=== PATIENT | female | born 1960 | race Caucasian/White ===

== ENCOUNTER → 2021-03-14 11:07 | Outpatient (BNVA) | payer MEDICAID, SELFPAY | PROVIDERS: Family Provider Internal Medicine; PCP Internal Medicine; Visit Provider Urology | DX: N30.20 Other chronic cystitis without hematuria (principal) | CPT/HCPCS: 81003; 87086 ==

== ENCOUNTER → 2021-05-17 12:56 | Outpatient (BNVA) | payer MEDICAID, SELFPAY | PROVIDERS: Family Provider Internal Medicine; PCP Internal Medicine; Visit Provider Nurse Practitioner Family | DX: N30.20 Other chronic cystitis without hematuria (principal) | CPT/HCPCS: 81003 ==

== ENCOUNTER 2021-10-25 14:29 | Outpatient (CLI) | payer MEDICAID, SELFPAY ==
--- NOTE | 2021-10-25 14:40 | CT_ITS ---
WS: [email or web address] CT LUMBAR SPINE TECHNIQUE: Noncontrast CT of the lumbar spine with coronal and sagittal reformatted images. CLINICAL INFORMATION: COMPRESSION FX OF L3 VERTEBRA COMPARISON: None. DLP: 1227.[address] scans at [facility] use at least one of these dose optimization techniques: automated e xposure control; mA and/or kV adjustment per patient size (includes targeted exams where dose is matc hed to clinical indication); or iterative reconstruction. FINDINGS: Mild lumbar curve. Recent compression of the superior endplate L3 vertebral body with mild retropulsi on posterior superior cortex. Slight effacement of ventral thecal sac. No high-grade central canal st enosis. Loss of approximately 20-30% vertebral body height. Inferior endplate is preserved. This appe ars unchanged since September 21, 2021. Persistent fracture cleft in the superior endplate suspicious for subacute compression. Some sclerosis in the superior endplate. L1-L2: Normal. L2-L3: Mild annular bulging. Mild retropulsion posterior superior cortex L3. Slight effacement of radha tral thecal sac. Mild narrowing subarticular recess bilaterally. Mild facet arthropathy. Foramen are patent. L3-L4: Minimal annular bulging. Mild facet arthropathy. Spinal canal and foramen are patent. L4-L5: Mild annular bulging with slight effacement of ventral thecal sac. Spinal canal and foramen ar e patent. Moderate facet arthropathy. L5-S1: Mild annular bulging with a tiny shallow central protrusion. Slight effacement of ventral thec al sac. Spinal canal and foramen are patent. Mild facet arthropathy. Lobulated atrophic LEFT kidney with lobulated cortical lesions largest measuring 2.2 CCM.. These are nonspecific and recommend further evaluation with ultrasound or contrast-enhanced CT. Additional part ially visualized low-attenuation partially calcified lesions RIGHT kidney with scarring. CT/CT lumbar spine wo con* [id number] IMPRESSION: 1. Compression fracture superior endplate L3 with persistent visualized fractu re cleft. This is likely subacute in chronicity. Loss of approximately 20-30% v ertebral body height anteriorly. Minimal retropulsion posterior superior cortex without significant spinal canal narrowing. 2. No other compression fractures. 3. Mild facet arthropathy L3-L5. 4. Indeterminant bilateral renal lesions. Recommend further evaluation with ul trasound or contrast-enhanced CT abdomen pelvis.
== END 2021-10-25 14:30 | disposition home or self-care (01) ==
LOC: RAD 14:30
PROVIDERS: PCP Internal Medicine; Visit Provider Physician Assistant
DX: S32.030S Wedge compression fracture of third lumbar vertebra, sequela (principal); M47.816 Spondylosis without myelopathy or radiculopathy, lumbar region; N28.9 Disorder of kidney and ureter, unspecified; X58.XXXS Exposure to other specified factors, sequela
CPT/HCPCS: 72131

== ENCOUNTER 2021-11-10 14:39 | Outpatient (CLI) | payer MEDICAID, SELFPAY ==
--- NOTE | 2021-11-10 14:45 | XR_ITS ---
WS: [email or web address] DEXA (DUAL ENERGY X-RAY ABSORPTIOMETRY) Bone mineral density was performed using a Bullhorn machine. HISTORY: POSTMENOPAUSAL COMPARISON: None available. Lumbar spine BMD (L1-L4): 1.023 g/cm2 T score: -1.3 Z score: -0.1 Total hip BMD: Left: 0.830 g/cm2. T score: -1.4 Z score: -0.5 Right: 0.802 g/cm2. T score: -1.6 Z score: -0.7 10 year probability of a major osteoporotic fracture is 19.6%. XR/XR DEXA axial skeleton* [id number] IMPRESSION: OSTEOPENIA based upon the WHO classification for females.
== END 2021-11-10 14:40 | disposition home or self-care (01) ==
PROVIDERS: PCP Internal Medicine; Visit Provider Internal Medicine
DX: Z78.0 Asymptomatic menopausal state (principal); M85.88 Other specified disorders of bone density and structure, other site
CPT/HCPCS: 77080

== ENCOUNTER → 2021-11-14 13:39 | Outpatient (BNVA) | payer MEDICAID, SELFPAY | PROVIDERS: PCP Internal Medicine; Visit Provider Orthopaedic Surgery | DX: S32.039A Unspecified fracture of third lumbar vertebra, initial encounter for closed fracture (principal); X50.0XXA Overexertion from strenuous movement or load, initial encounter | CPT/HCPCS: 72100; 81003 ==

== ENCOUNTER → 2021-12-12 14:17 | Outpatient (BNVA) | payer MEDICAID, SELFPAY | PROVIDERS: PCP Internal Medicine; Visit Provider Orthopaedic Surgery | DX: S32.039D Unspecified fracture of third lumbar vertebra, subsequent encounter for fracture with routine healing (principal); X58.XXXD Exposure to other specified factors, subsequent encounter | CPT/HCPCS: 72100 ==

== ENCOUNTER → 2022-01-09 13:42 | Outpatient (BNVA) | payer MEDICAID, SELFPAY | PROVIDERS: PCP Internal Medicine; Visit Provider Orthopaedic Surgery | DX: S32.039D Unspecified fracture of third lumbar vertebra, subsequent encounter for fracture with routine healing (principal); X58.XXXD Exposure to other specified factors, subsequent encounter | CPT/HCPCS: 72100 ==

== ENCOUNTER 2022-01-29 13:46 | Outpatient (CLI) | payer MEDICAID, SELFPAY ==
--- NOTE | 2022-01-29 13:30 | CT_ITS ---
WS: [email or web address] CT ABDOMEN AND PELVIS WITH AND WITHOUT CONTRAST HISTORY: Left Renal Mass TECHNIQUE: Unenhanced 5 mm axial imaging first performed through the abdomen. Post contrast imaging t hrough the abdomen and pelvis. Oral contrast has not been provided. Sagittal and coronal reformats a re submitted. All CT scans at [facility] use at least one of these dose optimization techniqu es: automated exposure control; mA and/or kV adjustment per patient size (includes targeted exams whe re dose is matched to clinical indication); or iterative reconstruction. CONTRAST: None DLP: 2942.06 mGy.cm COMPARISON: Prior CT 07/17/2015, ultrasound 11/20/2021 Lung bases are hyperinflated. Large hiatal hernia. Normal size heart. RIGHT kidney: No atrophy or obstruction. Mild cortical thinning upper pole. No renal mass is identifi ed. Normal size ureter. Good opacification of the RIGHT ureter. The ureter is tortuous but no stone o r uroepithelial lesions. LEFT kidney: Moderate atrophy of the LEFT kidney. Kidney measures approximately 4.7 cm in length. Cor tical scarring and nodularity. There is no obstruction. No mass identified. No cysts. There is excret ion from the kidney into the pelvis but not into the ureter. Very similar to the prior study from 201 6. Liver, pancreas, gallbladder, adrenal glands and spleen are negative. No adenopathy or ascites. No GI tract obstruction. Mild anterior wedging of L3. CT/CT abdomen pelvis wo/w [id number] IMPRESSION: 1. No solid renal mass or cyst. 2. Marked atrophy LEFT kidney but there is still enhancement and excretion. 3. No uroepithelial lesions identified.
[2022-01-29] MEDS: iohexol 350 mg/mL 100 mL Btl IV (14:11)
[2022-01-29 14:43] LABS: Blood Urea Nitrogen 13 mg/dL (8-23); Glomerular Filtration Rate 50.5 mL/min (90-130)
== END 2022-01-29 13:47 | disposition home or self-care (01) ==
LOC: RAD 13:47
PROVIDERS: PCP Internal Medicine; Visit Provider Urology
DX: N28.89 Other specified disorders of kidney and ureter (principal); G31.9 Degenerative disease of nervous system, unspecified; N30.20 Other chronic cystitis without hematuria
CPT/HCPCS: 74178; 81003; 82565; 84520; Q9967

== ENCOUNTER 2022-08-07 14:37 | Outpatient (CLI) | payer MEDICAID, SELFPAY | END 2022-08-07 14:38 | disposition home or self-care (01) | PROVIDERS: PCP Family Medicine; Visit Provider Family Medicine | DX: S32.038A Other fracture of third lumbar vertebra, initial encounter for closed fracture (principal); X58.XXXA Exposure to other specified factors, initial encounter; M47.816 Spondylosis without myelopathy or radiculopathy, lumbar region; M41.9 Scoliosis, unspecified | CPT/HCPCS: 72100 ==

== ENCOUNTER → 2022-10-04 15:39 | Outpatient (BNVA) | payer MEDICAID, SELFPAY | PROVIDERS: PCP Family Medicine; Visit Provider Family Medicine | DX: N95.2 Postmenopausal atrophic vaginitis (principal); Z01.419 Encounter for gynecological examination (general) (routine) without abnormal findings | CPT/HCPCS: 87624 ==

== ENCOUNTER 2022-10-18 15:19 | Outpatient (CLI) | payer MEDICAID, SELFPAY ==
--- NOTE | 2022-10-18 15:33 | MM_ITS ---
WS: [email or web address] SCREENING DIGITAL BREAST TOMOSYNTHESIS MAMMOGRAM WITH CAD HISTORY: screening mammogram COMPARISON: 05/23/2018, 04/25/2018 Bilateral CC and MLO with tomosynthesis and synthetic mammography submitted. Computer aided detection analyzed. Breast composition: There are scattered areas of fibroglandular density. Focal asymmetry is partially obscured in the central left breast near 3:00. Additional bilateral calcifications. IMPRESSION: MM/[place] [id number] BI-RADS: 0-Incomplete: Need additional imaging evaluation FOLLOW UP: Need Additional Imaging Left breast: Spot compression views (CC and MLO). True ML. Ultrasound to follow if abnormality persists.
== END 2022-10-18 15:20 | disposition home or self-care (01) ==
LOC: RAD 15:20
PROVIDERS: PCP Family Medicine; Visit Provider Family Medicine
DX: Z12.31 Encounter for screening mammogram for malignant neoplasm of breast (principal)
CPT/HCPCS: 77063; 77067

== ENCOUNTER 2022-12-03 12:52 | Outpatient (CLI) | payer MEDICAID, SELFPAY ==
--- NOTE | 2022-12-03 12:57 | MM_ITS ---
WS: [email or web address] ADDITIONAL VIEWS LEFT MAMMOGRAM with tomosynthesis. LEFT BREAST ULTRASOUND HISTORY: abnormal screening mammogram COMPARISON: 10/18/2022 and 04/25/2018 LEFT MAMMOGRAM: Spot compression views and true ML with tomosynthesis and sympathetic mammography. Ill-defined nodule which is nearly isodense to the adjacent breast persist measuring 12 mm just centr al to the nipple. This may be normal fibroglandular tissue but further evaluation by ultrasound is re commended. No distortion. LEFT BREAST ULTRASOUND 2-D and color Doppler imaging submitted. Ultrasound LEFT breast in the area of concern demonstrates a cyst measuring 1.2 x 0.5 x 0.9 cm. This does correspond in size and location to the mammographic abnormality. IMPRESSION: MM/[place] [id number] BI-RADS: 2-Benign FOLLOW UP: 1 Year Follow-up LEFT breast mass corresponds to a simple cyst by ultrasound.
== END 2022-12-03 12:53 | disposition home or self-care (01) ==
PROVIDERS: PCP Family Medicine; Visit Provider Family Medicine
DX: R92.8 Other abnormal and inconclusive findings on diagnostic imaging of breast (principal); N60.02 Solitary cyst of left breast
CPT/HCPCS: 76642; 77061; G0279

== ENCOUNTER → 2022-12-10 09:14 | Outpatient (BNVA) | payer MEDICAID, SELFPAY | PROVIDERS: PCP Family Medicine; Visit Provider Family Medicine | DX: Z13.6 Encounter for screening for cardiovascular disorders (principal) | CPT/HCPCS: 80053; 80061; 84443; 85025 ==

== ENCOUNTER 2023-07-18 15:04 | Outpatient (CLI) | payer MEDICAID, SELFPAY ==
--- NOTE | 2023-07-18 15:19 | XR_ITS ---
WS: [email or web address] Thoracic spine, 3 views, 07/18/2023 Clinical Data: chronic back pain Comparison: None. Findings: No compression fractures are seen. The disc heights are normal. There is minimal osteoarthritic change of the thoracic vertebral bodies. The paravertebral regions ar e normal. There is a slight dextroscoliosis of the lower thoracic spine. XR/XR thoracic spine 2V [id number] Impression: Mild osteoarthritis and minimal dextroscoliosis of the thoracic spine.
--- NOTE | 2023-07-18 15:19 | XR_ITS ---
WS: [email or web address] Lumbar spine, 3 views, 07/18/2023 Clinical Data: chronic low back pain Comparison: Lumbar spine, 08/07/2022 Findings: The L3 compression fracture with loss of 50% of the anterior and central vertebral body height remain s the same. There are no other compression fractures. There is disc narrowing at L1-L2 and L2-L3. The transverse processes and SI joints are normal. There is a slight dextroscoliosis of the upper lumbar spine. XR/XR lumbar spine 2-3V* [id number] Impression: 1. No change in L3 compression fracture. 2. Degenerative disc narrowing at L1-L2 and L2-L3 unchanged. 3. Slight dextroscoliosis of the upper lumbar spine.
== END 2023-07-18 15:05 | disposition home or self-care (01) ==
LOC: RAD 15:13
PROVIDERS: PCP Family Medicine; Visit Provider Family Medicine
DX: M48.56XD Collapsed vertebra, not elsewhere classified, lumbar region, subsequent encounter for fracture with routine healing (principal); M48.061 Spinal stenosis, lumbar region without neurogenic claudication; M47.894 Other spondylosis, thoracic region
CPT/HCPCS: 72070; 72100

== ENCOUNTER 2023-08-07 11:54 | Outpatient (CLI) | payer OTHER, SELFPAY ==
--- NOTE | 2023-08-07 12:02 | XR_ITS ---
WS: [email or web address] Exam: XR lumbar spine 2-3V* [id number] Date/Time of Exam: 08/07/2023 12:18 PM Reason For Exam: BACK PAIN Comparison 07/18/2023. Old compression fracture at the upper plate of L3 again noted. No change. Degenerative narrowing of t he L2-3 disc. Posterior elements are intact. Increased lumbar lordosis. Mild levoscoliosis. XR/XR lumbar spine 2-3V* [id number] IMPRESSION: 1. Old compression fracture of the L3 without significant posterior displacemen t. 2. Degenerative change of the L2-3 disc. 3. Minimal degenerative changes and mild scoliosis.
== END 2023-08-07 11:55 | disposition home or self-care (01) ==
LOC: RAD 11:57
PROVIDERS: PCP Family Medicine; Visit Provider Dermatology
DX: M47.816 Spondylosis without myelopathy or radiculopathy, lumbar region (principal); M48.56XA Collapsed vertebra, not elsewhere classified, lumbar region, initial encounter for fracture; M41.9 Scoliosis, unspecified
CPT/HCPCS: 72100

== ENCOUNTER → 2024-02-17 10:37 | Outpatient (BNVA) | payer MEDICAID, SELFPAY | PROVIDERS: PCP Family Medicine; Visit Provider Family Medicine | DX: F10.10 Alcohol abuse, uncomplicated (principal) | CPT/HCPCS: 80053; 80061 ==

== ENCOUNTER 2024-02-25 15:12 | Outpatient (CLI) | payer MEDICAID, SELFPAY ==
--- NOTE | 2024-02-25 15:14 | XR_ITS ---
WS: [email or web address] SCREENING DEXA SCAN [employer] CLINICAL INFORMATION: breast cyst COMPARISON: 2021 FINDINGS: The L1-L4 bone mineral density measures 1.07. This corresponds to a T score score of -1.0 and Z score of 0.0. Left femoral neck bone mineral density measures 0.818 g/cm2. This corresponds to a T score of -1.5 an d Z score of -0.7. Right femoral neck bone mineral density measures 0.796 g/cm2. This corresponds to a T score -1.7of an d Z score of -0.9. Mean femoral neck bone mineral density measures 0.807 g/cm2. This corresponds to a T score of -1.6 an d Z score of -0.8. XR/XR DEXA axial skeleton* [id number] IMPRESSION: Osteopenia lumbar spine. Osteopenia femoral necks. Patient's FRAX calculated 10 year probability for major osteoporotic fracture i s 19.2% and osteoporotic hip fracture is 3.2%. Bone marrow density lumbar spine increased 4.0% Bone mineral density femoral necks decreased -1.1%
== END 2024-02-25 15:13 | disposition home or self-care (01) ==
LOC: RAD 15:13
PROVIDERS: PCP Family Medicine; Visit Provider Family Medicine
DX: Z13.820 Encounter for screening for osteoporosis (principal); M85.80 Other specified disorders of bone density and structure, unspecified site; N60.02 Solitary cyst of left breast
CPT/HCPCS: 77080

== ENCOUNTER 2024-04-07 10:49 | Outpatient (CLI) | payer MEDICAID, SELFPAY ==
--- NOTE | 2024-04-07 10:54 | MM_ITS ---
WS: [email or web address] BILATERAL 3D TOMOSYNTHESIS DIGITAL SCREENING MAMMOGRAPHY WITH CAD CLINICAL INFORMATION: ANNUAL SCREEN HISTORY: Screening mammogram. No current complaints. COMPARISON: 2022 TECHNIQUE: Bilateral CC and MLO views. FINDINGS: The breasts are composed of heterogeneous fibroglandular density tissue, which can limit the detectio n of small underlying mass lesions. No suspicious mass, asymmetry, calcifications, or architectural d istortion. No evidence of malignancy. Incidental punctate and lucent centered calcifications. Vascula r calcification. MM/MM [facility] tomosynthesis [id number] IMPRESSION: DENSITY: The breasts are heterogeneously dense, which may obscure small masses. BI-RADS: 2 - Benign FOLLOW UP: 1 Year Follow-up Recommend return to annual screening mammography.
== END 2024-04-07 10:50 | disposition home or self-care (01) ==
LOC: RAD 10:51
PROVIDERS: PCP Family Medicine; Visit Provider Family Medicine
DX: Z12.31 Encounter for screening mammogram for malignant neoplasm of breast (principal); R92.333 Mammographic heterogeneous density, bilateral breasts; R92.1 Mammographic calcification found on diagnostic imaging of breast
CPT/HCPCS: 77063; 77067

== ENCOUNTER 2024-05-30 17:30 | Inpatient (IN) | payer MEDICAID, SELFPAY ==
[2024-05-30] VITALS (17 sets, daily range): BP systolic 102–166; BP diastolic 60–84; PULSE 100–114; RESP 16–26; TEMP 36.6–37.3; O2SAT 92–100; BMI 25.8
--- NOTE | 2024-05-30 17:36 | ECG_ITS ---
COGEON [place] Date: 2024-05-30 Pat Name: Gilda Gabriel Department: Room: Gender: Female Resident Care Aid: : 1960 Requested By: Jm Murguia Order Number: [id number] Celina MD: Kwasi Wang M.D. Measurements Intervals [place] Rate: 112 P: 80 LA: 145 QRS: 66 QRSD: 81 T: 70 QT: 311 QTc: 425 Interpretive Statements SINUS TACHYCARDIA POSSIBLE RIGHT VENTRICULAR CONDUCTION DELAY [RSR (QR) IN V1/V2] MINIMAL ST DEPRESSION [0.025+ mV ST DEPRESSION] ABNORMAL RHYTHM ECG No previous ECG available for comparison Electronically Signed On 05-31-2024 22:42:53 CDT by Kwasi Wang M.D. [email or web address]
--- NOTE | 2024-05-30 17:43 | XRR_ITS ---
PROCEDURE INFORMATION: Exam: XR Chest Exam date and time: 05/30/2024 6:05 PM Age: 63 years old Clinical indication: Shortness of breath; SOB TECHNIQUE: Imaging protocol: Radiologic exam of the chest. Views: 1 view. COMPARISON: CR XR thoracic spine 2V [id number] 07/18/2023 3:25 PM FINDINGS: Lungs: No focal consolidation. Pleural spaces: Unremarkable. No pleural effusion. No pneumothorax. Heart/Mediastinum: Large hiatal hernia. Bones/joints: Unremarkable. XR/XR chest 1V portable [id number] IMPRESSION: 1. No focal consolidation. 2. Large hiatal hernia.
[2024-05-30] MEDS: methylPREDNISolone sod succ 125 mg/2 mL INJ IV (17:58)
[2024-05-30 18:05] LABS: Basophils # 0.1 10^3/uL (0.0-0.1); Basophils % 0.8 %; Eosinophils # 0.2 10^3/uL (0.0-0.8); Eosinophils % 2.7 %; Lymphocytes # 1.3 10^3/uL (0.8-4.8); Lymphocytes % 17.8 %; Mean Corpuscular HGB Conc 28.8 g/dL (30-55); Mean Corpuscular Hemoglobin 21.2 pg (27-33); Mean Corpuscular Volume 73.7 fl (85-98); Mean Platelet Volume 9.8 fL (7.4-10.4); Monocytes # 0.9 10^3/uL (0.2-0.9); Monocytes % 11.7 %; Neutrophils # 4.93 10^3/uL (1.8-7.7); Neutrophils % 66.5 %; Nucleated Red Blood Cells % 0.4 %; Platelet Count 429 10^3/cmm (157-399); Red Blood Count 2.17 10^6/uL (3.85-5.65); Red Cell Distribution Width 17.2 % (12.1-15.1); White Blood Count 7.42 10^3/uL (3.29-11.43)
[2024-05-30 18:09] LABS: D Dimer 0.28 ug/mLFEU (0-0.59)
[2024-05-30 18:12] LABS: Lactic Sepsis W/Reflex 3.6 mmol/L (0.5-2.2)
[2024-05-30] MEDS: ipratropium-albuterol 3 mL Neb INHALATION (18:12)
[2024-05-30 18:22] LABS: Alanine Aminotransferase 16 U/L (0-33); Albumin Level 3.9 g/dL (3.5-5.2); Alkaline Phosphatase 79 U/L (35-105); Anion Gap 16.4 (5-19); Aspartate Amino Transferase 21 U/L (0-32); Blood Urea Nitrogen 19 mg/dL (8-23); Calcium 8.8 mg/dL (8.5-10.5); Carbon Dioxide 21 mmol/L (22-29); Chloride 100 mmol/L (98-107); Globulin 2.3 g/dL (1.3-4.6); Glomerular Filtration Rate 50.2 mL/min (90-130); Glucose 99 mg/dL (65-115); Osmolality Calculated 278 mOsm/kg (285-295); Potassium 4.4 mmol/L (3.5-5.1); Sodium 133 mmol/L (136-145); Total Bilirubin 0.3 mg/dL (0.15-1.2); Total Protein 6.2 g/dL (6.6-8.7)
[2024-05-30 18:23] LABS: NT Pro B Type Natriuretic Pept 368 pg/mL (0-125)
--- NOTE | 2024-05-30 18:26 | W.ED.SOB ---
HPI - SOB/Dyspnea General: Chief Complaint: Shortness of Breath/Dyspnea Stated Complaint: sob Time Seen by Provider: 05/30/24 17:43 History of Present Illness: HPI Narrative: 63-year-old female says that she was ill with a cough 3 to 4 weeks ago. She was short of breath at that point. She seemed to recover to some degree, but since that time she has been very short of breath with activity. 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 Her daughter noted today that her heart rate was elevated, and that her oxygen level is a bit low. She denies ongoing cough. She denies ongoing fever. She states that she may be wheezing at times. Related Data Home Medications ?Medication ?Instructions ?Recorded ?Confirmed aripiprazole 5 mg tablet 2.5 mg PO .q am 05/30/24 05/30/24 omeprazole 40 mg capsule,delayed 40 mg PO .qnightly PRN Acid Reflux 05/30/24 05/30/24 release Previous Rx's ?Medication ?Instructions ?Recorded albuterol sulfate 90 mcg/actuation 2 puff inhalation Q6H #8.5 grams 04/26/23 aerosol inhaler amitriptyline 100 mg tablet 100 mg PO DAILY #90 tabs 02/17/24 clonazepam 0.5 mg tablet 0.5 mg PO BID PRN anxiety #45 tabs 02/17/24 venlafaxine 150 mg 150 mg PO DAILY #30 caps 05/08/24 capsule,extended release 24 hr Allergies Allergy/AdvReac Type Severity Reaction Status Date / Time No Known Allergies Allergy Verified 05/30/24 20:46 [facility] ED PFS: Medical History Alcohol use disorder, mild, abuse Screening mammogram for breast cancer Osteopenia Moderate major depression GERD (gastroesophageal reflux disease) History of compression fracture of spine L3 Chronic cystitis Surgical History History of ankle surgery Hx of cervical biopsy History of cataract surgery Family History Mother , AT AGE 48 Non Hodgkin's lymphoma Father No problems noted. Social History Smoking and tobacco/nicotine status: never used tobacco/nicotine Alcohol intake: current Alcohol intake frequency: few times a week Substance/Drug Use: never Marital status: Current occupational status: unemployed Physical Exam Const: COMMON NORMALS: no acute distress GENERAL APPEARANCE: cooperative; not ill appearing and not frail appearing HENMT: COMMON NORMALS: normocephalic, atraumatic and Normal external nose present HEAD & SCALP: normocephalic and atraumatic FACE & SINUS: normal facial exam and face symmetric NOSE: Normal external nose present Eye: COMMON NORMALS: Equal, round and reactive pupils present and EOMs intact bilaterally PUPIL: Yes Equal, round and reactive pupils present Neck/C-Spine: GENERAL: Yes trachea midline Chest: CHEST: Yes Symmetrical chest wall rise Resp: COMMON NORMALS: normal respiratory effort, No retractions, No use of accessory muscles and clear to auscultation bilaterally AUSCULTATION: clear to auscultation bilaterally Cardio: COMMON NORMALS: regular rhythm RATE: tachycardic RHYTHM: regular rhythm GI: COMMON NORMALS: Normal to inspection, nondistended, normoactive bowel sounds present Extremity: COMMON NORMALS: no pedal edema Neuro: THOR COMA SCALE: document GCS findings [place] coma scale eye opening: Spontaneous [place] coma scale verbal response: Orientated [place] coma scale motor response: Obey commands Thor coma scale total score: 15 SENSORY EXAM: Yes extremities (intact) Psych: COMMON NORMALS: speech normal SPEECH: Yes normal speech Skin: COMMON NORMALS: no rashes or lesions noted GENERAL SKIN EXAM: no rashes or lesions noted Course Vital Signs: Vital signs: Vital Signs Temperature 98.2 F 05/31/24 00:52 Pulse Rate 101 H 05/31/24 00:52 Respiratory Rate 16 05/31/24 00:52 Blood Pressure 119/70 05/31/24 00:52 Pulse Oximetry 93 05/31/24 00:52 Oxygen Delivery Me thod Room Air 05/30/24 23:44 MDM - SOB/Dyspnea Medical Decision Making Patient is mildly tachycardic. She is normotensive. Saturations remain essentially normal here with normal respirations. Chest x-ray is not impressive. She is given a breathing treatment and Solu-Medrol. On return of her labs, her hemoglobin is 4.6 with a hematocrit of 16. Anemia appears microcytic. Creatinine is 1.1. Other laboratory including D-dimer is not remarkable. Lab Data 05/30/24 17:46 05/30/24 17:46 Labs/Radiology: Radiology Impressions Chest X-Ray 05/30/24 17:43 IMPRESSION: 1. No focal consolidation. 2. Large hiatal hernia. Laboratory Results WBC 7.42 10^3/uL (3.29-11.43) 05/30/24 17:46 RBC 2.17 10^6/uL (3.85-5.65) L 05/30/24 17:46 Hgb 4.60 g/dL (11.27-16.99) L* 05/30/24 17:46 Hct 16.0 % (36-47) L* 05/30/24 17:46 MCV 73.7 fl (85-98) L 05/30/24 17:46 MCH 21.2 pg (27-33) L 05/30/24 17:46 MCHC 28.8 g/dL (30-55) L 05/30/24 17:46 RDW 17.2 % (12.1-15.1) H 05/30/24 17:46 Plt Count 429 10^3/cmm (157-399) H 05/30/24 17:46 MPV 9.8 fL (7.4-10.4) 05/30/24 17:46 Neut % (Auto) 66.5 % 05/30/24 17:46 Lymph % (Auto) 17.8 % 05/30/24 17:46 [place] % (Auto) 11.7 % 05/30/24 17:46 Eos % (Auto) 2.7 % 05/30/24 17:46 Baso % (Auto) 0.8 % 05/30/24 17:46 Neut # (Auto) 4.93 10^3/uL (1.8-7.7) 05/30/24 17:46 Lymph # (Auto) 1.3 10^3/uL (0.8-4.8) 05/30/24 17:46 [place] # (Auto) 0.9 10^3/uL (0.2-0.9) 05/30/24 17:46 Eos # (Auto) 0.2 10^3/uL (0.0-0.8) 05/30/24 17:46 Baso # (Auto) 0.1 10^3/uL (0.0-0.1) 05/30/24 17:46 Nucleated RBC % (auto) 0.4 % 05/30/24 17:46 Nucleated RBCs # 0.0 /100WBC 05/30/24 17:46 D-Dimer 0.28 ug/mLFEU (0-0.59) 05/30/24 17:46 Sodium 133 mmol/L (136-145) L 05/30/24 17:46 Potassium 4.4 mmol/L (3.5-5.1) 05/30/24 17:46 Chloride 100 mmol/L (98-107) 05/30/24 17:46 Carbon Dioxide 21 mmol/L (22-29) L 05/30/24 17:46 Anion Gap 16.4 (5-19) 05/30/24 17:46 BUN 19 mg/dL (8-23) 05/30/24 17:46 Creatinine 1.1 mg/dL (0.5-0.9) H 05/30/24 17:46 GFR Calculation 50.2 mL/min (90-130) L 05/30/24 17:46 Glucose 99 mg/dL (65-115) 05/30/24 17:46 Calculated Osmolality 278 mOsm/kg (285-295) L 05/30/24 17:46 Lactic Acid 3.6 mmol/L (0.5-2.2) H 05/30/24 17:46 Calcium 8.8 mg/dL (8.5-10.5) 05/30/24 17:46 Iron 14 ug/dL (37-145) L 05/30/24 17:46 TIBC 546 mcg/dl 05/30/24 17:46 % Saturation 2.5 % (20-50) L 05/30/24 17:46 Unsat Iron Binding 532 ug/dL (112-347) H 05/30/24 17:46 Ferritin 9 ng/mL (15-150) L 05/30/24 17:46 Total Bilirubin 0.3 mg/dL (0.15-1.2) 05/30/24 17:46 AST 21 U/L (0-32) 05/30/24 17:46 ALT 16 U/L (0-33) 05/30/24 17:46 Alkaline Phosphatase 79 U/L (35-105) 05/30/24 17:46 NT-Pro-B Natriuret Pep 368 pg/mL (0-125) H 05/30/24 17:46 Total Protein 6.2 g/dL (6.6-8.7) L 05/30/24 17:46 Albumin 3.9 g/dL (3.5-5.2) 05/30/24 17:46 Globulin 2.3 g/dL (1.3-4.6) 05/30/24 17:46 Vitamin B12 832 pg/mL (232-1245) 05/30/24 17:46 Blood Type O Positive 05/30/24 18:27 Rho(D) Type Rh positive 05/30/24 18:27 Antibody Screen Negative 05/30/24 18:27 Crossmatch See Detail 05/30/24 18:27 All radiology interpretation(s) finalized by discharge Discharge Plan Discharge Patient Disposition: Admitted As Inpatient Admit Provider: Mannie Smith Clinical Impression: Severe anemia, Microcytic anemia Clinical Impression: (Ruled Out): Anxiety Condition: Fair Coding Level of Care Code ED Assistant Manager Pt for Jared Edgar
[2024-05-30] MEDS: acetaminophen 325 mg Tablet 650 MG PO (18:38)
[2024-05-30] MEDS: diphenhydrAMINE 50 mg/mL SDV 1mL 12.5 MG IVP (18:38)
--- NOTE | 2024-05-30 18:38 | PC.NURSE ---
blood consent form signed and in chart
[2024-05-30 18:53] LABS: Reflex Lactate Order REFLEX LACTIC ORDERD
[2024-05-30] MEDS: sodium chloride 0.9% 100 mL Bag 50 ML IV (21:04)
--- NOTE | 2024-05-30 21:46 | PM.HP ---
Providers/Chief Complaint Admitting Physician: Mannie Smith MD Primary Care Provider: Pankaj Jose MD Chief Complaint: sob History of Present Illness Gilda Gabriel is a 63 year old female with history of alcoholic abuse, chronic back pain takes ibuprofen/diclofen, started noticing dark-colored stools for last 2 weeks presenting with generalized weakness and fatigue. Patient stating that at age 50 years she had colonoscopy done which was unremarkable. She has no history of gastric ulcers. On daily basis she takes NSAIDs for her back pain. She drinks wine these days before going to bed stating that she used to drink hard liquor and now switched to wine to help her sleep. 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 Not complaining of chest pain, fever, syncopal event. Patient has chronic back pain, osteopenia, anxiety insomnia GERD, alcohol use disorder Workup in the ER revealed microcytic severe anemia hemoglobin 4.6 requested unit PRBC, general surgery consulted Patient is hemodynamically stable with tachycardia Review of Systems Const: Reports: chills, body aches, fatigue and malaise; Denies: fever(s) Eyes: Denies: change in vision ENMT: Denies: throat pain Card: Denies: chest pain Resp: Denies: dyspnea GI: Denies: abdominal pain Musc: Reports: back pain Medications/Allergies Home Medications ?Medication ?Instructions ?Recorded ?Confirmed ?Last Taken ?Type albuterol sulfate 90 mcg/actuation 2 puff inhalation Q6H #8.5 grams 04/26/23 05/30/24 Unknown Rx aerosol inhaler amitriptyline 100 mg tablet 100 mg PO DAILY #90 tabs 02/17/24 05/30/24 Unknown Rx clonazepam 0.5 mg tablet 0.5 mg PO BID PRN anxiety #45 tabs 02/17/24 05/30/24 Unknown Rx venlafaxine 150 mg 150 mg PO DAILY #30 caps 05/08/24 05/30/24 Unknown Rx capsule,extended release 24 hr aripiprazole 5 mg tablet 2.5 mg PO .q am 05/30/24 05/30/24 Unknown History omeprazole 40 mg capsule,delayed 40 mg PO .qnightly PRN Acid Reflux 05/30/24 05/30/24 Unknown History release Allergies Allergy/AdvReac Type Severity Reaction Status Date / Time No Known Allergies Allergy Verified 05/30/24 20:46 PFSH Acute PFSH: Medical History Alcohol use disorder, mild, abuse Screening mammogram for breast cancer Osteopenia Moderate major depression GERD (gastroesophageal reflux disease) History of compression fracture of spine L3 Chronic cystitis Surgical History History of ankle surgery Hx of cervical biopsy History of cataract surgery Family History Mother , AT AGE 48 Non Hodgkin's lymphoma Father No problems noted. Social History Smoking and tobacco/nicotine status: never used tobacco/nicotine Alcohol intake: current Alcohol intake frequency: few times a week Substance/Drug Use: never Marital status: Current occupational status: unemployed Vitals/I&O/Wt Last Vital Signs Temp 98.3 F 05/30/24 21:04 Pulse 104 H 05/30/24 21:04 Resp 24 H 05/30/24 21:04 BP 166/84 05/30/24 21:04 Pulse Ox 92 05/30/24 21:04 O2 Del Method Room Air 05/30/24 20:35 05/30/24 05/30/24 05/30/24 06:59 14:59 22:59 Intake Total 0 / 0 Balance 0 / 0 Weight last 48 hrs Weight 79.435 kg Weight 72.575 kg Physical Exam Narrative: Awake and alert S1, S2 GCS 15 Hemodynamically stable Tachycardia sinus heart rate around 103 Blood pressure 128/74 mg per Coarse tremors noted at rest GCS 15 AOx4 Pleasant and cooperative No audible stridor or wheezing Data 05/30/24 17:46 05/30/24 17:46 A&P Assessment and plan (1) Anxiety and depression: (2) Alcohol use disorder, mild, abuse: (3) Osteopenia: (4) GERD (gastroesophageal reflux disease): Qualifiers: Esophagitis presence: without esophagitis Qualified Code(s): K21.9 - Gastro-esophageal reflux disease without esophagitis (5) History of compression fracture of spine: (6) Insomnia: Qualifiers: Insomnia type: psychophysiologic Qualified Code(s): F51.04 - Psychophysiologic insomnia (7) Severe anemia: (8) Microcytic anemia: (9) GAVINO (acute kidney injury): Plan Severe microcytic anemia Melanotic stools Patient takes NSAIDs for her back pain Drinks alcohol as well Start CIWA protocol Protonix IV twice daily regimen N.p.o. General Surgery consulted for EGD Currently patient is hemodynamically stable Requested 2 unit PRBC Not endorsing taking antiplatelets or anticoagulating agent For anxiety continue clonazepam Mild GAVINO: Anticipate improvement with blood transfusion and fluid hydration N.p.o. Full code DVT prophylaxis: Anticoagulation contraindicated: Use SCDs for now PDMP PDMP Reviewed: Not Reviewed Attestations Medical Necessity Statement*: Anticipating discharge within 24 to 48 hours will need EGD evaluation for melanotic stools, patient has severe anemia Coding Level of Care Code Acute Code for Chg Fwd Diagnoses Anxiety and depression F41.9; F32.A Alcohol use disorder, mild, abuse F10.10 Osteopenia M85.80 Gastroesophageal reflux disease without esophagitis K21.9 Esophagitis presence: without esophagitis History of compression fracture of spine Z87.81 Psychophysiological insomnia F51.04 Insomnia type: psychophysiologic Severe anemia D64.9 Microcytic anemia D50.9 GAVINO (acute kidney injury) N17.9
[2024-05-30 22:15] LABS: Ferritin 9 ng/mL (15-150); Iron 14 ug/dL (37-145); Percent Saturation 2.5 % (20-50); Total Iron Binding Capacity 546 mcg/dl; Unsaturated Iron Binding 532 ug/dL (112-347)
[2024-05-30 22:31] LABS: Vitamin B12 832 pg/mL (232-1245)
[2024-05-30 22:54] LABS: Lactic Acid level (Lactate) 1.8 mmol/L (0.5-2.2)
[2024-05-30] MEDS: thiamine 100 mg/mL 2mL SDV IM (23:04)
[2024-05-31] VITALS (27 sets, daily range): BP systolic 99–138; BP diastolic 58–78; PULSE 82–101; RESP 15–18; TEMP 36.4–37.1; O2SAT 92–100
[2024-05-31] MEDS: sodium chloride 0.9% 100 mL Bag 50 ML IV (02:07)
[2024-05-31 04:58] LABS: Basophils % 0.2 %; Hematocrit 26.1 % (36-47); Lymphocytes # 0.6 10^3/uL (0.8-4.8); Lymphocytes % 9.5 %; Mean Corpuscular HGB Conc 30.3 g/dL (30-55); Mean Corpuscular Hemoglobin 23.5 pg (27-33); Mean Corpuscular Volume 77.7 fl (85-98); Mean Platelet Volume 9.9 fL (7.4-10.4); Monocytes # 0.1 10^3/uL (0.2-0.9); Monocytes % 1.8 %; Neutrophils # 5.22 10^3/uL (1.8-7.7); Neutrophils % 87.5 %; Nucleated Red Blood Cells % 0.7 %; Platelet Count 322 10^3/cmm (157-399); Red Blood Count 3.36 10^6/uL (3.85-5.65); Red Cell Distribution Width 17.5 % (12.1-15.1); White Blood Count 5.97 10^3/uL (3.29-11.43)
[2024-05-31 05:24] LABS: Anion Gap 17.4 (5-19); Blood Urea Nitrogen 18 mg/dL (8-23); Calcium 8.8 mg/dL (8.5-10.5); Carbon Dioxide 21 mmol/L (22-29); Chloride 104 mmol/L (98-107); Glomerular Filtration Rate 63.2 mL/min (90-130); Glucose 140 mg/dL (65-115); Magnesium 2.2 mg/dL (1.7-2.3); Osmolality Calculated 290 mOsm/kg (285-295); Potassium 4.4 mmol/L (3.5-5.1); Sodium 138 mmol/L (136-145)
[2024-05-31 05:26] LABS: Lactic Sepsis W/Reflex 2.1 mmol/L (0.5-2.2)
[2024-05-31 06:37] LABS: Reflex Lactate Order REFLEX LACTIC ORDERD
[2024-05-31 07:45] LABS: Lactic Acid level (Lactate) 1.6 mmol/L (0.5-2.2)
--- NOTE | 2024-05-31 07:50 | ANES.PREANE2 ---
Pre-Anesthetic Assessment Height/Weight: Height 5 ft 6 in Weight 176 lb 3.2 oz Temp Pulse Resp BP Pulse Ox O2 Del Method 98.1 F 96 18 125/69 92 Room Air 05/31/24 04:00 05/31/24 05:23 05/31/24 04:00 05/31/24 04:00 05/31/24 04:00 05/31/24 04:00 Preop Diagnosis: Concern for GI bleed Operation Date: 05/31/24 09:15 Proposed Procedures p EGD(Not Applicable) - Laci Johnson MD Last intake: Intake Last Liquid Date 05/30/24 Last Liquid Time 23:59 Last Solid Date 05/30/24 Last Solid Time 14:30 Social Alcohol and No tobacco Exam alert, oriented x 3, clear to auscultation bilaterally and regular rate & rhythm Airway Submandibular: within normal limits Cervical ROM: within normal limits Mallampati: Class II Dentition: full Anesthetic Plan ASA status: 3E Anesthesia: MAC Other: Patient presented overnight with melanic stools and severe microcytic anemia, hemoglobin 4.6 at admission. No prior issues with anesthesia History of alcohol abuse disorder, drinks daily. On CIWA protocol Patient takes NSAIDs daily for chronic back pain History of PTSD GERD, on omeprazole at baseline. She was placed on Protonix at admission proBNP was 368 at admission, EKG showing sinus tachycardia. Possible very minimal ST depression. Patient denies any chest pain currently Labs from this a.m. reviewed, hemoglobin up to 7.9 currently Plan for MAC anesthesia Medications/Allergies Home Medications ?Medication ?Instructions ?Recorded ?Confirmed ?Last Taken ?Type albuterol sulfate 90 mcg/actuation 2 puff inhalation Q6H #8.5 grams 04/26/23 05/30/24 Unknown Rx aerosol inhaler amitriptyline 100 mg tablet 100 mg PO DAILY #90 tabs 02/17/24 05/30/24 Unknown Rx clonazepam 0.5 mg tablet 0.5 mg PO BID PRN anxiety #45 tabs 02/17/24 05/30/24 Unknown Rx venlafaxine 150 mg 150 mg PO DAILY #30 caps 05/08/24 05/30/24 Unknown Rx capsule,extended release 24 hr aripiprazole 5 mg tablet 2.5 mg PO .q am 05/30/24 05/30/24 Unknown History omeprazole 40 mg capsule,delayed 40 mg PO .qnightly PRN Acid Reflux 05/30/24 05/30/24 Unknown History release Allergies Allergy/AdvReac Type Severity Reaction Status Date / Time No Known Allergies Allergy Verified 05/30/24 20:46 COUNTS INCLUDE 234 BEDS AT THE [facility] Anesthesia Medical History Alcohol use disorder, mild, abuse Screening mammogram for breast cancer Osteopenia Moderate major depression GERD (gastroesophageal reflux disease) History of compression fracture of spine L3 Chronic cystitis Surgical History History of ankle surgery Hx of cervical biopsy History of cataract surgery Family History Mother , AT AGE 48 Non Hodgkin's lymphoma Father No problems noted. Social History Smoking and tobacco/nicotine status: never used tobacco/nicotine Alcohol intake: current Alcohol intake frequency: few times a week Substance/Drug Use: never Marital status: Current occupational status: unemployed Data Anesthesia 05/31/24 04:00 05/31/24 04:00 Short CBC 05/30/24 05/31/24 Range/Units 17:46 04:00 WBC 7.42 5.97 (3.29-11.43) 10^3/uL Hgb 4.60 L* 7.90 L D (11.27-16.99) g/dL Hct 16.0 L* 26.1 L D (36-47) % MCV 73.7 L 77.7 L D (85-98) fl Plt Count 429 H 322 (157-399) 10^3/cmm Neut % (Auto) 66.5 87.5 % Neut # (Auto) 4.93 5.22 (1.8-7.7) 10^3/uL BMP 05/30/24 05/31/24 17:46 04:00 Sodium 133 L 138 Potassium 4.4 4.4 Chloride 100 104 Carbon Dioxide 21 L 21 L BUN 19 18 Creatinine 1.1 H 0.9 Glucose 99 140 H Calcium 8.8 8.8 Cardiac Enzymes 05/30/24 Range/Units 17:46 NT-Pro-B Natriuret Pep 368 H (0-125) pg/mL Liver Function 05/30/24 Range/Units 17:46 Total Bilirubin 0.3 (0.15-1.2) mg/dL AST 21 (0-32) U/L ALT 16 (0-33) U/L Alkaline Phosphatase 79 (35-105) U/L Albumin 3.9 (3.5-5.2) g/dL Blood Bank 05/30/24 18:27 Blood Type O Positive Rho(D) Type Rh positive Antibody Screen Negative Coags 05/30/24 17:46 D-Dimer 0.28 Cardiac Studies: No Data to Display
--- NOTE | 2024-05-31 07:58 | PM.CONSULT ---
Providers/Reason For Consult Consulting Physician/Specialty*: Dr. Johnson general surgery Reason for Consult*: Melena Attending Physician: Mannie Smith MD Primary Care Provider: Pankaj Jose MD History of Present Illness History of Present Illness Gilda Gabriel is a 63 year old female who presents with melena. Patient required a transfusion in the ER. Surgery consulted for EGD. Medications/Allergies Home Medications ?Medication ?Instructions ?Recorded ?Confirmed ?Last Taken ?Type albuterol sulfate 90 mcg/actuation 2 puff inhalation Q6H #8.5 grams 04/26/23 05/30/24 Unknown Rx aerosol inhaler amitriptyline 100 mg tablet 100 mg PO DAILY #90 tabs 02/17/24 05/30/24 Unknown Rx clonazepam 0.5 mg tablet 0.5 mg PO BID PRN anxiety #45 tabs 02/17/24 05/30/24 Unknown Rx venlafaxine 150 mg 150 mg PO DAILY #30 caps 05/08/24 05/30/24 Unknown Rx capsule,extended release 24 hr aripiprazole 5 mg tablet 2.5 mg PO .q am 05/30/24 05/30/24 Unknown History omeprazole 40 mg capsule,delayed 40 mg PO .qnightly PRN Acid Reflux 05/30/24 05/30/24 Unknown History release Allergies Allergy/AdvReac Type Severity Reaction Status Date / Time No Known Allergies Allergy Verified 05/30/24 20:46 PFSH Acute PFSH: Medical History Alcohol use disorder, mild, abuse Screening mammogram for breast cancer Osteopenia Moderate major depression GERD (gastroesophageal reflux disease) History of compression fracture of spine L3 Chronic cystitis Surgical History History of ankle surgery Hx of cervical biopsy History of cataract surgery Family History Mother , AT AGE 48 Non Hodgkin's lymphoma Father No problems noted. Social History Smoking and tobacco/nicotine status: never used tobacco/nicotine Alcohol intake: current Alcohol intake frequency: few times a week Substance/Drug Use: never Marital status: Current occupational status: unemployed Vitals/I&O/Wt Last Vital Signs Temp 97.7 F 05/31/24 07:53 Pulse 96 05/31/24 07:53 Resp 17 05/31/24 07:53 BP 126/76 05/31/24 07:53 Pulse Ox 92 05/31/24 07:53 O2 Del Method Room Air 05/31/24 07:53 05/30/24 05/31/24 05/31/24 22:59 06:59 14:59 Intake Total 350 / 350 0 / 350 Balance 350 / 350 0 / 350 Weight last 48 hrs Weight 176 lb 3.2 oz Weight 175 lb 2 oz Weight 160 lb Physical Exam Narrative: Chest: Unlabored breathing room air. No lymphadenopathy. Heart: Regular rate and rhythm. Abdomen: Soft, nontender, nondistended. No masses or lymphadenopathy. Data 05/31/24 04:00 05/31/24 04:00 A&P Assessment and plan (1) Melena: Plan 63-year-old female who presents with acute anemia and reports melena. Discussed risk and benefits and patient agrees to proceed with diagnostic EGD. PDMP PDMP Reviewed: Not Reviewed Coding Level of Care Code 23922 Diagnoses Melena K92.1 Time Spent (min) 30
[2024-05-31] MEDS: pantoprazole 40 mg SDV IVP ×2 (08:55→17:16)
[2024-05-31] MEDS: sodium chloride 0.9% 500 ML 15 ML IV (09:24)
--- NOTE | 2024-05-31 09:26 | PM.MISC ---
Miscellaneous Note Note: No bleeding source on EGD. Mild gastritis. See full report on chart.
--- NOTE | 2024-05-31 09:49 | ANE.PACU2 ---
Inpatient post-anesthesia follow up: Airway intact: Yes Vital signs: Temperature 97.6 F Pulse Rate 99 Respiratory Rate 18 Blood Pressure 124/73 Pulse Oximetry 97 Oxygen Delivery Me thod Room Air Oxygen Flow Rate 6 Fraction of Inspir ed Oxygen Hydration adequate: Yes Nausea and vomiting: No Pain level: 1 Mental status: Baseline
[2024-05-31] MEDS: folic acid 1 mg Tablet PO (10:20)
[2024-05-31] MEDS: thiamine 100 mg Tablet PO (10:20)
[2024-05-31] MEDS: multivitamin therapeutic Tablet 1 TAB PO (10:20)
--- NOTE | 2024-05-31 15:01 | P.PN_ITS ---
Subjective 2 Subjective: EGD shows gastritis. Repeat hemoglobin pending from today. Patient is status post 2 units packed RBC. Sitting up comfortably in bed. Vitals/I&O/Wt Last Vital Signs Temp 97.6 F 05/31/24 11:50 Pulse 98 05/31/24 11:50 Resp 18 05/31/24 11:50 BP 99/61 05/31/24 11:50 Pulse Ox 100 05/31/24 11:50 O2 Del Method Room Air 05/31/24 11:50 O2 Flow Rate 6 05/31/24 09:29 05/31/24 05/31/24 05/31/24 06:59 14:59 22:59 Intake Total 0 / 350 780 / 780 Output Total 0 / 0 Balance 0 / 350 780 / 780 Weight last 48 hrs Weight 79.923 kg Weight 79.435 kg Weight 72.575 kg Physical Exam 2 Narrative: Awake and alert S1, S2 GCS 15 Hemodynamically stable Regular rate rhythm. Blood pressure 128/74 mg per Coarse tremors noted at rest GCS 15 AOx4 Pleasant and cooperative No audible stridor or wheezing Data 05/31/24 04:00 05/31/24 04:00 A&P Assessment and plan (1) Anxiety and depression: (2) Alcohol use disorder, mild, abuse: (3) Osteopenia: (4) GERD (gastroesophageal reflux disease): Qualifiers: Esophagitis presence: without esophagitis Qualified Code(s): K21.9 - Gastro-esophageal reflux disease without esophagitis (5) History of compression fracture of spine: (6) Insomnia: Qualifiers: Insomnia type: psychophysiologic Qualified Code(s): F51.04 - Psychophysiologic insomnia (7) Severe anemia: (8) Microcytic anemia: (9) GAVINO (acute kidney injury): Plan Severe microcytic anemia Melanotic stools Patient takes NSAIDs for her back pain Drinks alcohol as well Start CIWA protocol Protonix IV twice daily regimen N.p.o. General Surgery consulted for EGD Currently patient is hemodynamically stable Requested 2 unit PRBC Not endorsing taking antiplatelets or anticoagulating agent For anxiety continue clonazepam Mild GAVINO: Anticipate improvement with blood transfusion and fluid hydration N.p.o. Full code DVT prophylaxis: Anticoagulation contraindicated: Use SCDs for now 05/31/2024 Continue CIWA protocol today EGD shows gastritis. 2 units packed RBCs already given. Continue to monitor CBC status post EGD. Does have evidence of iron deficiency anemia. Order Venofer IV x 3 days. PDMP PDMP Reviewed: Not Reviewed Attestations 2 Medical Necessity Statement*: Requires continued hospitalization for monitoring of blood counts and IV iron administration for severe anemia. Diagnoses Anxiety and depression F41.9; F32.A Alcohol use disorder, mild, abuse F10.10 Osteopenia M85.80 Gastroesophageal reflux disease without esophagitis K21.9 Esophagitis presence: without esophagitis History of compression fracture of spine Z87.81 Psychophysiological insomnia F51.04 Insomnia type: psychophysiologic Severe anemia D64.9 Microcytic anemia D50.9 GAVINO (acute kidney injury) N17.9
[2024-05-31 15:19] LABS: Basophils % 0.1 %; Eosinophils % 0.1 %; Hematocrit 23.1 % (36-47); Lymphocytes # 1.1 10^3/uL (0.8-4.8); Lymphocytes % 14.8 %; Mean Corpuscular HGB Conc 30.7 g/dL (30-55); Mean Corpuscular Hemoglobin 23.2 pg (27-33); Mean Corpuscular Volume 75.5 fl (85-98); Mean Platelet Volume 9.8 fL (7.4-10.4); Monocytes % 13.1 %; Neutrophils # 5.44 10^3/uL (1.8-7.7); Neutrophils % 71.1 %; Nucleated Red Blood Cells # 0.1 /100WBC; Nucleated Red Blood Cells % 0.7 %; Platelet Count 355 10^3/cmm (157-399); Red Blood Count 3.06 10^6/uL (3.85-5.65); Red Cell Distribution Width 17.6 % (12.1-15.1); White Blood Count 7.65 10^3/uL (3.29-11.43)
[2024-05-31 15:34] LABS: LAB Peripheral Smear Sent for Review
[2024-05-31 15:35] LABS: Reticulocyte % 1.5 % (0.5-2.0)
[2024-05-31] MEDS: sodium chloride 0.9% (100 ml) 100 ML 150 ML (16:37)
[2024-05-31] MEDS: ferrous sulfate EC 325 mg Tablet PO (17:16)
--- NOTE | 2024-05-31 22:17 | USCV_ITS ---
Gilda Gabriel Age: 63 Gender: F : 1960 Exam Date: 05/31/2024 09:38 Ordering Phys: Mannie Smith MD Technologist: Dino Shin Exam Location: [facility] [place] Indication: chf BP: 126 / 76 HR: 86 Rhythm: Sinus Technical Quality: Adequate MEASUREMENTS (Male / Female) Normal Values 2D ECHO LV Diastolic Diameter PLAX 4.3 cm 4.2 - 5.9 / 3.9 - 5.3 cm IVS Diastolic Thickness 1.4 cm 0.6 - 1.0 / 0.6 - 0.9 cm IVS Systolic Thickness 1.7 cm LVPW Diastolic Thickness 1.4 cm 0.6 - 1.0 / 0.6 - 0.9 cm LVPW Systolic Thickness 1.5 cm LVOT Diameter 2.0 cm LV Ejection Fraction 2D Teich 74.1 % LV Ejection Fraction MOD 4C 66.2 % LV Ejection Fraction MOD 2C 74.7 % LV Ejection Fraction 2C AL 77.1 % LA Diameter 3.3 cm RA Systolic Volume 4C AL 19.1 ml RA Systolic Volume 4C MOD 19.9 ml LA Sys Volume AL 46.8 cm cubed LA Sys Volume Index AL 24.0 cm cubed/m squared Aorta at Sinotubular Diameter 2.5 cm IVC Diameter 1.7 cm M-MODE LA Ao Ratio MM 1.6 AV Cusp Separation MM 1.4 cm DOPPLER AV Peak Velocity 233.0 cm/s LVOT Peak Velocity 89.0 cm/s AV Area Cont Eq vti 1.4 cm squared AV Area Cont Eq pk 1.2 cm squared MV Peak Velocity 132.0 cm/s MV Area PHT 4.4 cm squared Mitral E to A Ratio 1.3 TV Peak Velocity 410.0 cm/s TR Peak Velocity 437.0 cm/s TR Peak Gradient 76.4 mmHg TR Mean Velocity 370.0 cm/s TR Mean Gradient 56.3 mmHg TR Velocity Time Integral 111.1 cm PV Peak Velocity 100.0 cm/s RV Ejection Time 0.3 s FINDINGS Left Ventricle Normal left ventricular size and systolic function, EF 66% . Grade I/IV diastolic dysfunction (abnormal relaxation filling pattern), normal to mildly elevated filling pressures. Right Ventricle Normal right ventricular size and systolic function. Right Atrium Normal right atrial size. Left Atrium Mildly increased left atrial size. Mitral Valve Mild mitral annular calcification. Aortic Valve No gross abnormalities Tricuspid Valve Trace to mild tricuspid valve regurgitation. Pulmonic Valve Pulmonic valve not well visualized. Pericardium No pericardial effusion. Aorta Normal aortic annulus size. IVC Inferior vena cava not visualized. CONCLUSIONS Normal left ventricular size and systolic function, EF 66% . Grade I/IV diastolic dysfunction (abnormal relaxation filling pattern), normal to mildly elevated filling pressures. Mildly increased left atrial size. Mild mitral annular calcification. Trace to mild tricuspid valve regurgitation. There is no pericardial effusion. There are no intracardiac masses. No similar previous studies are available for comparison Dr Kwasi Wang MD [facility] (Electronically Signed) Final Date: 31 May 2024 13:26 S
[2024-05-31] MEDS: CLONazepam 0.5 mg Tablet PO (23:54)
[2024-06-01] VITALS (9 sets, daily range): BP systolic 108–138; BP diastolic 61–79; PULSE 86–109; RESP 16–20; TEMP 36.6–36.8; O2SAT 90–95
--- NOTE | 2024-06-01 00:06 | ECG_ITS ---
[facility] Date: 2024-05-31 Pat Name: Gilda Gabriel Department: Room: 266 Gender: Female [employer]: : 1960 Requested By: Mannie Smith Order Number: [id number] Celina MD: Kwasi Wang M.D. Measurements Intervals [place] Rate: 97 P: 56 NV: 133 QRS: 29 QRSD: 91 T: 39 QT: 334 QTc: 424 Interpretive Statements SINUS RHYTHM POSSIBLE RIGHT VENTRICULAR CONDUCTION DELAY [RSR (QR) IN V1/V2] MODERATE ST DEPRESSION [0.05+ mV ST DEPRESSION] INTERPRETATION BASED ON A DEFAULT AGE OF 40 YEARS Compared to ECG 05/30/2024 17:36:40 Sinus tachycardia no longer present ST (T wave) deviation still present Electronically Signed On 06-01-2024 21:03:19 CDT by Kwasi Wang M.D. [email or web address]
--- NOTE | 2024-06-01 01:05 | XRR_ITS ---
PROCEDURE INFORMATION: Exam: XR Chest Exam date and time: 06/01/2024 12:10 AM Age: 63 years old Clinical indication: New onset of dyspnea and wheezing; Additional info: SOB, exp wheezing new onset TECHNIQUE: Imaging protocol: Radiologic exam of the chest. Views: 1 view. COMPARISON: CR (CHEST, ) 05/30/2024 6:05 PM FINDINGS: Lungs: Increased interstitial markings with peribronchial cuffing in the lung bases are nonspecific but can be seen the setting of bronchitis, pulmonary vascular congestion, viral infection and small-vessel airways disease. Pleural spaces: Unremarkable. No pleural effusion. No pneumothorax. Heart/Mediastinum: Large hiatal hernia. Bones/joints: Unremarkable. XR/XR chest 1V portable [id number] IMPRESSION: 1. Large hiatal hernia. 2. Increased interstitial markings with peribronchial cuffing in the lung bases are nonspecific but can be seen the setting of bronchitis, pulmonary vascular congestion, viral infection and small-vessel airways disease.
[2024-06-01] MEDS: FUROsemide 10 mg/mL SDV 2mL 20 MG IVP (01:51)
[2024-06-01 06:00] LABS: Basophils # 0.1 10^3/uL (0.0-0.1); Basophils % 0.3 %; Eosinophils # 0.1 10^3/uL (0.0-0.8); Eosinophils % 0.4 %; Hematocrit 34.1 % (36-47); Lymphocytes # 0.8 10^3/uL (0.8-4.8); Lymphocytes % 4.1 %; Mean Corpuscular HGB Conc 32.6 g/dL (30-55); Mean Corpuscular Hemoglobin 24.9 pg (27-33); Mean Corpuscular Volume 76.5 fl (85-98); Mean Platelet Volume 9.5 fL (7.4-10.4); Monocytes # 1.3 10^3/uL (0.2-0.9); Monocytes % 6.5 %; Neutrophils # 17.24 10^3/uL (1.8-7.7); Neutrophils % 87.8 %; Nucleated Red Blood Cells % 0.1 %; Platelet Count 331 10^3/cmm (157-399); Red Blood Count 4.46 10^6/uL (3.85-5.65); Red Cell Distribution Width 18.1 % (12.1-15.1); White Blood Count 19.61 10^3/uL (3.29-11.43)
[2024-06-01 06:21] LABS: Anion Gap 14.6 (5-19); Blood Urea Nitrogen 15 mg/dL (8-23); Calcium 8.8 mg/dL (8.5-10.5); Carbon Dioxide 26 mmol/L (22-29); Chloride 103 mmol/L (98-107); Glucose 130 mg/dL (65-115); Osmolality Calculated 293 mOsm/kg (285-295); Potassium 3.6 mmol/L (3.5-5.1); Sodium 140 mmol/L (136-145)
[2024-06-01] MEDS: thiamine 100 mg Tablet PO (08:31)
[2024-06-01] MEDS: folic acid 1 mg Tablet PO (08:31)
[2024-06-01] MEDS: ferrous sulfate EC 325 mg Tablet PO ×2 (08:31→18:17)
[2024-06-01] MEDS: multivitamin therapeutic Tablet 1 TAB PO (08:32)
[2024-06-01] MEDS: pantoprazole 40 mg SDV IVP ×2 (08:32→18:18)
--- NOTE | 2024-06-01 08:35 | P.PN_ITS ---
Subjective 2 Subjective: No melena, no hematochezia Vitals/I&O/Wt Last Vital Signs Temp 98.3 F 06/01/24 08:00 Pulse 96 06/01/24 08:00 Resp 16 06/01/24 08:00 BP 108/61 06/01/24 08:00 Pulse Ox 92 06/01/24 08:00 O2 Del Method Nasal Cannula 06/01/24 08:00 O2 Flow Rate 6 05/31/24 09:29 05/31/24 06/01/24 06/01/24 22:59 06:59 14:59 Intake Total 820 / 1600 0 / 1600 Output Total 1600 / 1600 800 / 800 Balance 820 / 1600 -1600 / 0 -800 / -800 Weight last 48 hrs Weight 173 lb 1.6 oz Weight 176 lb 3.2 oz Weight 175 lb 2 oz Weight 160 lb Physical Exam 2 Narrative: Chest: Unlabored breathing room air. No lymphadenopathy. Heart: Regular rate and rhythm. Abdomen: Soft, nontender, nondistended. No masses or lymphadenopathy. Data 06/01/24 05:48 06/01/24 05:48 A&P Assessment and plan (1) Microcytic anemia: Plan 63-year-old female status post EGD. Unremarkable. Denies hematochezia or melena. Consider colonoscopy if patient continues dropping hemoglobin. PDMP PDMP Reviewed: Not Reviewed Attestations 2 Medical Necessity Statement*: N/A Coding Level of Care Code 46519 Diagnoses Microcytic anemia D50.9
[2024-06-01] MEDS: iron sucrose 200 MG in sodium chloride 0.9% (100 ml) 100 ML 220 MG IV (08:45)
--- NOTE | 2024-06-01 10:51 | CT_ITS ---
WS: [id number] CT CHEST, ABDOMEN, AND PELVIS TECHNIQUE: Contrast-enhanced CT of the chest, abdomen, and pelvis with coronal and sagittal reformatted images. CLINICAL INFORMATION: query malignancy, severe iron Def anemia DLP: 894.[address] scans at [facility] use at least one of these dose optimization techniques: automated exposure control; mA and/or kV adjustment per patient size (includes targeted exams where dose is matched to clinical indication); or iterative reconstruction. CT CHEST: Lungs are well aerated. No acute pulmonary infiltrates. No focal pneumonia or pleural fluid. Slight atelectasis in the lung bases. Large esophageal hiatal hernia with partial intrathoracic stomach. Normal caliber thoracic aorta. No mediastinal or hilar lymphadenopathy. No axillary lymphadenopathy. Normal thoracic spine. CT ABDOMEN AND PELVIS: Hepatic steatosis. Mild hepatomegaly. Normal portal vein and splenic vein. Normal spleen. Large esophageal hernia with partial intrathoracic stomach. No evidence of obstruction. Fat-containing umbilical hernia. Adrenal glands are normal. Atrophic LEFT kidney with parenchymal scarring. Normal caliber abdominal aorta. Celiac and SMA are patent. No free fluid in the abdomen or pelvis. Normal sigmoid colon. Chronic compression with anterior wedging L3. Retroverted and retroflexed uterus. No lymphadenopathy visualized in the abdomen or pelvis. CT/CT chest abdpel w/*[id number] IMPRESSION: 1. No acute findings in the chest abdomen or pelvis. 2. Large esophageal hiatal hernia with partial intrathoracic stomach similar t o 2021 3. No lymphadenopathy in the abdomen or pelvis. 4. Subsegmental atelectasis in the lower lobes.
--- NOTE | 2024-06-01 11:44 | P.PN_ITS ---
Subjective 2 Subjective: seen today iron studies resulted, discussed findings with patient reticulocyte count 1.5 has 2 bm since yesterday and states stool color looking more normal and less dark pt s/p 4 units rbc since admission, hb 11.10 this am Vitals/I&O/Wt Last Vital Signs Temp 98.3 F 06/01/24 08:00 Pulse 96 06/01/24 08:00 Resp 16 06/01/24 08:00 BP 108/61 06/01/24 08:00 Pulse Ox 92 06/01/24 08:00 O2 Del Method Nasal Cannula 06/01/24 08:00 O2 Flow Rate 6 05/31/24 09:29 05/31/24 06/01/24 06/01/24 22:59 06:59 14:59 Intake Total 820 / 1600 0 / 1600 Output Total 1600 / 1600 800 / 800 Balance 820 / 1600 -1600 / 0 -800 / -800 Weight last 48 hrs Weight 78.517 kg Weight 79.923 kg Weight 79.435 kg Weight 72.575 kg Physical Exam 2 Narrative: Awake and alert S1, S2 GCS 15 Hemodynamically stable Regular rate rhythm. Coarse tremors noted at rest GCS 15 AOx4 Pleasant and cooperative No audible stridor or wheezing Data 06/01/24 05:48 06/01/24 05:48 Micro: Microbiology 06/01/24 10:21 Blood Culture - Preliminary Blood SPECIMEN COLLECTED 06/01/24 10:16 Blood Culture - Preliminary Blood SPECIMEN COLLECTED A&P Assessment and plan (1) Anxiety and depression: (2) Alcohol use disorder, mild, abuse: (3) Osteopenia: (4) GERD (gastroesophageal reflux disease): Qualifiers: Esophagitis presence: without esophagitis Qualified Code(s): K21.9 - Gastro-esophageal reflux disease without esophagitis (5) History of compression fracture of spine: (6) Insomnia: Qualifiers: Insomnia type: psychophysiologic Qualified Code(s): F51.04 - Psychophysiologic insomnia (7) Severe anemia: (8) Microcytic anemia: (9) GAVINO (acute kidney injury): Plan Severe microcytic anemia Melanotic stools Patient takes NSAIDs for her back pain Drinks alcohol as well Start CIWA protocol Protonix IV twice daily regimen N.p.o. General Surgery consulted for EGD Currently patient is hemodynamically stable Requested 2 unit PRBC Not endorsing taking antiplatelets or anticoagulating agent For anxiety continue clonazepam Mild GAVINO: Anticipate improvement with blood transfusion and fluid hydration N.p.o. Full code DVT prophylaxis: Anticoagulation contraindicated: Use SCDs for now 05/31/2024 Continue CIWA protocol today EGD shows gastritis. 2 units packed RBCs already given. Continue to monitor CBC status post EGD. Does have evidence of iron deficiency anemia. Order Venofer IV x 3 days. 06/01/2024 continue ciwa protocol EGD shows gastritis. 2 units packed RBCs already given. Continue to monitor CBC status post EGD. Does have evidence of iron deficiency anemia. does have severe iron deficiency anemia pt will need venofer 200 daily x 5 days continue to hospitalize for monitoring of hemoglobin and melanotic stools if stools normalize and hb remains stable, may dc home after 3 doses of venofer and complete rest of venofer treatment as outpatient however if pt continues to experience melena with down trending hb and requirement of blood transfusions, pt may need transfer to higher level care facility with GI capability for further workup. continue protonix 40 IV bid, add sucralfate 1 qid PDMP PDMP Reviewed: Not Reviewed Attestations 2 Medical Necessity Statement*: severe iron deficiency anemia with melena, requires continued hospitalization for IV iron and monitoring of HB Diagnoses Anxiety and depression F41.9; F32.A Alcohol use disorder, mild, abuse F10.10 Osteopenia M85.80 Gastroesophageal reflux disease without esophagitis K21.9 Esophagitis presence: without esophagitis History of compression fracture of spine Z87.81 Psychophysiological insomnia F51.04 Insomnia type: psychophysiologic Severe anemia D64.9 Microcytic anemia D50.9 GAVINO (acute kidney injury) N17.9
[2024-06-01] MEDS: iohexol 350 mg/mL 500 mL Btl (per mL) IV (11:48)
[2024-06-01 15:16] LABS: Basophils # 0.1 10^3/uL (0.0-0.1); Basophils % 0.3 %; Eosinophils # 0.2 10^3/uL (0.0-0.8); Eosinophils % 1.5 %; Hematocrit 34.3 % (36-47); Lymphocytes # 1.7 10^3/uL (0.8-4.8); Lymphocytes % 11.1 %; Mean Corpuscular HGB Conc 32.1 g/dL (30-55); Mean Corpuscular Hemoglobin 24.9 pg (27-33); Mean Corpuscular Volume 77.8 fl (85-98); Monocytes # 1.3 10^3/uL (0.2-0.9); Monocytes % 8.5 %; Neutrophils # 11.72 10^3/uL (1.8-7.7); Neutrophils % 78.2 %; Nucleated Red Blood Cells % 0 %; Platelet Count 335 10^3/cmm (157-399); Red Blood Count 4.41 10^6/uL (3.85-5.65); Red Cell Distribution Width 18.4 % (12.1-15.1); White Blood Count 14.99 10^3/uL (3.29-11.43)
[2024-06-01] MEDS: sucralfate 1 gm Tablet PO (19:45)
[2024-06-01] MEDS: CLONazepam 0.5 mg Tablet PO (19:46)
[2024-06-02] VITALS (7 sets, daily range): BP systolic 115–127; BP diastolic 66–77; PULSE 83–96; RESP 16–20; TEMP 36.7–36.9; O2SAT 90–96
[2024-06-02] MEDS: sucralfate 1 gm Tablet PO ×4 (05:54→23:05)
[2024-06-02 05:57] LABS: Basophils # 0.1 10^3/uL (0.0-0.1); Basophils % 0.6 %; Eosinophils # 0.4 10^3/uL (0.0-0.8); Eosinophils % 4.1 %; Hematocrit 35.4 % (36-47); Lymphocytes # 1.3 10^3/uL (0.8-4.8); Lymphocytes % 13.1 %; Mean Corpuscular HGB Conc 31.4 g/dL (30-55); Mean Corpuscular Hemoglobin 25.1 pg (27-33); Mean Corpuscular Volume 80.1 fl (85-98); Mean Platelet Volume 9.7 fL (7.4-10.4); Monocytes # 1.1 10^3/uL (0.2-0.9); Monocytes % 10.5 %; Neutrophils # 7.12 10^3/uL (1.8-7.7); Neutrophils % 71.3 %; Nucleated Red Blood Cells % 0.2 %; Platelet Count 307 10^3/cmm (157-399); Red Blood Count 4.42 10^6/uL (3.85-5.65); Red Cell Distribution Width 19.1 % (12.1-15.1); White Blood Count 9.99 10^3/uL (3.29-11.43)
[2024-06-02] MEDS: thiamine 100 mg Tablet PO (08:50)
[2024-06-02] MEDS: folic acid 1 mg Tablet PO (08:50)
[2024-06-02] MEDS: multivitamin therapeutic Tablet 1 TAB PO (08:50)
[2024-06-02] MEDS: pantoprazole 40 mg SDV IVP (08:51)
[2024-06-02] MEDS: ferrous sulfate EC 325 mg Tablet PO ×2 (08:51→17:27)
--- NOTE | 2024-06-02 09:37 | PC.CHAP ---
Pastoral Care Encounter/Spiritual Assessment Type of Contact [] Declined supervisor fertilizer visit [] Patient/Family/Request visit [] Outpatient visit [] Follow-up visit [] Physician referral [] Code/Alert [x] Routine visit [] Staff referral [] Actively dying [] Patient sleeping [] Family support [] [] Out of room [] Palliative care [] [] Receiving care in room [] Pre-surgical visit [] Trauma [] Long length of stay [] ICU visit [] Other: Relational/Emotional Strength [x] Patient feels connected with others/family/visitors/staff [] Distress [] Loneliness/isolation [] Abandonment Spirituality of Patient [x] Person of Keesha [] Attends Jewish of their Keesha [x] Believes in Prayer [] Reads Bible or Quaker materials [] There are Spiritual issues to be addressed 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 Interventions [x] Prayer [x] Active listening [x] Non-anxious presence [x] Spiritual/emotional support [] Crisis/trauma care [] Spiritual counseling [] Bereavement support [] Provided bereavement packet [] Provided Bible/devotional materials [] Provided toy/stuffed animal, coloring book to patient or family member [] Provided Communion [] Anointing/[place] [] Salvation [x] Completed spiritual assessment [] Other: Impact on Illness or Injury [] Angry [] Fearful [] Anxious [] Often cries [] Exhaustion [] Unable to work [] Unable to attend alevism [] Unable to walk/stand [] Unable to read [] Unable to drive [] Unable to eat/drink [] Unable to sleep [] Unable to be with family [] Patient intubated [] Other: Summary Time spent with patient 5 min
[2024-06-02] MEDS: iron sucrose 200 MG in sodium chloride 0.9% (100 ml) 100 ML 220 MG IV (09:42)
--- NOTE | 2024-06-02 13:42 | P.PN_ITS ---
Subjective 2 Subjective: States has had another bowel movement however it was not dark nor bloody. She says color is starting to improve. Hemoglobin stable at 11.1 today. Patient receiving IV iron at this time. Down to [address] chest on pelvis negative for malignancy findings.. Informed patient of that as well. Vitals/I&O/Wt Last Vital Signs Temp 98.0 F 06/02/24 11:16 Pulse 88 06/02/24 11:16 Resp 16 06/02/24 11:16 BP 118/70 06/02/24 11:16 Pulse Ox 96 06/02/24 11:16 O2 Del Method Nasal Cannula 06/02/24 11:16 O2 Flow Rate 1 06/02/24 11:16 06/01/24 06/02/24 06/02/24 22:59 06:59 14:59 Intake Total 480 / 1070 120 / 1190 590 / 590 Output Total 1225 / 2525 Balance -745 / -1455 120 / -1335 590 / 590 Weight last 48 hrs Weight 79.152 kg Weight 78.517 kg Physical Exam 2 Narrative: Awake and alert S1, S2 GCS 15 Hemodynamically stable Regular rate rhythm. Coarse tremors noted at rest GCS 15 AOx4 Pleasant and cooperative No audible stridor or wheezing Data 06/02/24 05:32 06/01/24 05:48 Micro: Microbiology 06/01/24 10:21 Blood Culture - Preliminary Blood NEGATIVE TO DATE 06/01/24 10:16 Blood Culture - Preliminary Blood NEGATIVE TO DATE A&P Assessment and plan (1) Anxiety and depression: (2) Alcohol use disorder, mild, abuse: (3) Osteopenia: (4) GERD (gastroesophageal reflux disease): Qualifiers: Esophagitis presence: without esophagitis Qualified Code(s): K21.9 - Gastro-esophageal reflux disease without esophagitis (5) History of compression fracture of spine: (6) Insomnia: Qualifiers: Insomnia type: psychophysiologic Qualified Code(s): F51.04 - Psychophysiologic insomnia (7) Severe anemia: (8) Microcytic anemia: (9) GAVINO (acute kidney injury): Plan Severe microcytic anemia Melanotic stools Patient takes NSAIDs for her back pain Drinks alcohol as well Start CIWA protocol Protonix IV twice daily regimen N.p.o. General Surgery consulted for EGD Currently patient is hemodynamically stable Requested 2 unit PRBC Not endorsing taking antiplatelets or anticoagulating agent For anxiety continue clonazepam Mild GAVINO: Anticipate improvement with blood transfusion and fluid hydration N.p.o. Full code DVT prophylaxis: Anticoagulation contraindicated: Use SCDs for now 05/31/2024 Continue CIWA protocol today EGD shows gastritis. 2 units packed RBCs already given. Continue to monitor CBC status post EGD. Does have evidence of iron deficiency anemia. Order Venofer IV x 3 days. 06/01/2024 continue ciwa protocol EGD shows gastritis. 2 units packed RBCs already given. Continue to monitor CBC status post EGD. Does have evidence of iron deficiency anemia. does have severe iron deficiency anemia pt will need venofer 200 daily x 5 days continue to hospitalize for monitoring of hemoglobin and melanotic stools if stools normalize and hb remains stable, may dc home after 3 doses of venofer and complete rest of venofer treatment as outpatient however if pt continues to experience melena with down trending hb and requirement of blood transfusions, pt may need transfer to higher level care facility with GI capability for further workup. continue protonix 40 IV bid, add sucralfate 1 qid 06/02/2024 Continue sucralfate, Protonix. Will switch to Protonix oral instead of IV at this time ? Continue Venofer 200 daily for dose today and tomorrow. She will complete last 2 doses as an outpatient. Discussed with case management to set up outpatient IV infusions. At time of discharge patient will need repeat CBC to monitor blood counts as outpatient and to follow-up with primary care doctor Will provide referral to hematology at discharge. Hemoglobin appears to be stabilizing today. Will continue to monitor in the hospital for 1 more day. Stop NSAIDs going forward. Plan for discharge tomorrow as long as hemoglobin stays stable. PDMP PDMP Reviewed: Not Reviewed Attestations 2 Medical Necessity Statement*: severe iron deficiency anemia with melena, requires continued hospitalization for IV iron and monitoring of HB Diagnoses Anxiety and depression F41.9; F32.A Alcohol use disorder, mild, abuse F10.10 Osteopenia M85.80 Gastroesophageal reflux disease without esophagitis K21.9 Esophagitis presence: without esophagitis History of compression fracture of spine Z87.81 Psychophysiological insomnia F51.04 Insomnia type: psychophysiologic Severe anemia D64.9 Microcytic anemia D50.9 GAVINO (acute kidney injury) N17.9
[2024-06-02] MEDS: pantoprazole DR 40 mg Tablet PO (17:27)
[2024-06-02] MEDS: acetaminophen 500 mg Tablet PO (23:07)
[2024-06-03] VITALS: BP 146/76; PULSE 90; RESP 16; TEMP 36.7; O2SAT 94
[2024-06-03 00:50] LABS: Hemoglobin 11.1 g/dL (11.7-15.5); Hemoglobinopathy MCH 24.9 pg (27.0-33.0); Hemoglobinopathy MCV 80.7 fL (80.0-100.0); Hemoglobinopathy RDW 18.9 % (11.0-15.0); Red Blood Cell Count 4.46 Million/uL (3.80-5.10)
[2024-06-03 03:52] VITALS: BP 148/83; PULSE 88; RESP 20; TEMP 36.6; O2SAT 92
[2024-06-03 04:11] VITALS: PULSE 92
[2024-06-03 06:00] LABS: Basophils # 0.1 10^3/uL (0.0-0.1); Basophils % 0.5 %; Eosinophils # 0.6 10^3/uL (0.0-0.8); Eosinophils % 5.2 %; Hematocrit 41.6 % (36-47); Lymphocytes # 1.8 10^3/uL (0.8-4.8); Lymphocytes % 15.9 %; Mean Corpuscular HGB Conc 30.8 g/dL (30-55); Mean Corpuscular Hemoglobin 25.4 pg (27-33); Mean Corpuscular Volume 82.5 fl (85-98); Mean Platelet Volume 9.8 fL (7.4-10.4); Monocytes # 1.2 10^3/uL (0.2-0.9); Monocytes % 11.2 %; Neutrophils # 7.41 10^3/uL (1.8-7.7); Neutrophils % 66.7 %; Nucleated Red Blood Cells % 0 %; Platelet Count 313 10^3/cmm (157-399); Red Blood Count 5.04 10^6/uL (3.85-5.65); Red Cell Distribution Width 20.5 % (12.1-15.1); White Blood Count 11.12 10^3/uL (3.29-11.43)
[2024-06-03 06:18] LABS: Blood Urea Nitrogen 8 mg/dL (8-23); Calcium 9.5 mg/dL (8.5-10.5); Carbon Dioxide 27 mmol/L (22-29); Chloride 101 mmol/L (98-107); Glomerular Filtration Rate 72.4 mL/min (90-130); Glucose 98 mg/dL (65-115); Magnesium 2.2 mg/dL (1.7-2.3); Osmolality Calculated 286 mOsm/kg (285-295); Sodium 139 mmol/L (136-145)
[2024-06-03 08:00] VITALS: BP 156/97; PULSE 89; RESP 17; TEMP 36.8; O2SAT 95
[2024-06-03] MEDS: pantoprazole DR 40 mg Tablet PO (08:20)
[2024-06-03] MEDS: folic acid 1 mg Tablet PO (08:21)
[2024-06-03] MEDS: thiamine 100 mg Tablet PO (08:21)
[2024-06-03] MEDS: sucralfate 1 gm Tablet PO (08:21)
[2024-06-03] MEDS: iron sucrose 200 MG in sodium chloride 0.9% (100 ml) 100 ML 220 MG IV (08:21)
[2024-06-03] MEDS: multivitamin therapeutic Tablet 1 TAB PO (08:21)
[2024-06-03] MEDS: ferrous sulfate EC 325 mg Tablet PO (08:21)
--- NOTE | 2024-06-03 09:25 | PM.DCS ---
Discharge Providers Date of Admission: 05/31/24 15:04 Date of Discharge: June 03, 2024 Attending Provider at Admission: Mannie Smith MD Attending Provider at Discharge: Shayy Syed MD Primary Care Provider: Pankaj Jose MD Diagnoses at Discharge Discharge Diagnosis (1) Anxiety and depression: Status: Acute (2) Alcohol use disorder, mild, abuse: Status: Acute (3) Osteopenia: Status: Acute (4) GERD (gastroesophageal reflux disease): Status: Acute Qualifiers: Esophagitis presence: without esophagitis Qualified Code(s): K21.9 - Gastro-esophageal reflux disease without esophagitis (5) History of compression fracture of spine: Status: Acute Permanent problem details: L3 (6) Insomnia: Status: Acute Qualifiers: Insomnia type: psychophysiologic Qualified Code(s): F51.04 - Psychophysiologic insomnia (7) Severe anemia: Status: Acute (8) Microcytic anemia: Status: Acute (9) GAVINO (acute kidney injury): Status: Acute Reason for Visit Reason for Visit: sob Hospital Course Hospital Course Patient presented to the hospital with severe microcytic anemia and melanotic stools. She takes NSAIDs for back pain. Received 4 units total during hospitalization. She underwent EGD which showed mild gastritis. Peripheral smear was sent, iron studies ordered indicating severe iron deficiency anemia. She received 3 days of IV Venofer during hospitalization with last 2 doses to be completed as an outpatient at infusion clinic. I held her aripiprazole as it has a side effect of red cell a plasia. She will need hematology follow-up going forward. In fact patient has appointment today on the day of discharge at 330. Urine culture positive for gram-negative rods. Will send patient home on nitrofurantoin for 7 days. She is asymptomatic. Imaging study also performed no report of malignancy. Continue Protonix sucralfate at discharge. Patient states her energy level has improved and she feels a lot better compared to admission. No longer having melanotic stools at this time. She says stools have cleared up and are more brown in color at this point. Discussed with oncologist at time of discharge. Patient will need to follow-up with general surgery for colonoscopy as an outpatient as workup of iron deficiency anemia. Physical Exam Narrative: Awake and alert S1, S2 GCS 15 Hemodynamically stable Regular rate rhythm. Coarse tremors noted at rest GCS 15 AOx4 Pleasant and cooperative No audible stridor or wheezing Discharge Data Studies Completed and Pending Completed Studies During Hospitalization Category Date Time Status CT chest abdomen pelvis [CT chest abdpel w/*[id number] Cat Scan 06/01/24 10:51 Completed ] Routine XR chest 1V portable [id number] Stat Exams 05/30/24 17:43 Completed XR chest 1V portable [id number] Stat Exams 06/01/24 01:05 Completed CV. echo complete* [id number] Routine Ultrasound 05/31/24 22:17 Completed Pending at discharge Category Date Time Status Blood Culture Stat Lab 06/01/24 10:21 Results Hemoglobinopathy Evaluation Routine Lab 05/31/24 15:59 Results Thalassemia & Hemoglobinopathy Routine Lab 05/31/24 15:59 Received Urine Culture Stat Lab 06/01/24 22:25 Results Radiology Impressions Chest X-Ray 06/01/24 01:05 IMPRESSION: 1. Large hiatal hernia. 2. Increased interstitial markings with peribronchial cuffing in the lung bases are nonspecific but can be seen the setting of bronchitis, pulmonary vascular congestion, viral infection and small-vessel airways disease. Chest/Abdomen/Pelvis CT 06/01/24 10:51 IMPRESSION: 1. No acute findings in the chest abdomen or pelvis. 2. Large esophageal hiatal hernia with partial intrathoracic stomach similar to 2021 3. No lymphadenopathy in the abdomen or pelvis. 4. Subsegmental atelectasis in the lower lobes. Laboratory Results WBC 11.12 10^3/uL (3.29-11.43) 06/03/24 05:54 Corrected WBC Cancelled 06/02/24 14:49 RBC 5.04 10^6/uL (3.85-5.65) 06/03/24 05:54 Hgb 12.80 g/dL (11.27-16.99) 06/03/24 05:54 Hct 41.6 % (36-47) 06/03/24 05:54 MCV 82.5 fl (85-98) L 06/03/24 05:54 MCH 25.4 pg (27-33) L 06/03/24 05:54 MCHC 30.8 g/dL (30-55) 06/03/24 05:54 RDW 20.5 % (12.1-15.1) H 06/03/24 05:54 Plt Count 313 10^3/cmm (157-399) 06/03/24 05:54 MPV 9.8 fL (7.4-10.4) 06/03/24 05:54 Gran % Cancelled 06/02/24 14:49 Neut % (Auto) 66.7 % 06/03/24 05:54 Lymph % (Auto) 15.9 % 06/03/24 05:54 [place] % (Auto) 11.2 % 06/03/24 05:54 Eos % (Auto) 5.2 % 06/03/24 05:54 Baso % (Auto) 0.5 % 06/03/24 05:54 Reticulocyte % (Auto) 1.5 % (0.5-2.0) 05/31/24 15:12 Neut # (Auto) 7.41 10^3/uL (1.8-7.7) 06/03/24 05:54 Lymph # (Auto) 1.8 10^3/uL (0.8-4.8) 06/03/24 05:54 [place] # (Auto) 1.2 10^3/uL (0.2-0.9) H 06/03/24 05:54 Eos # (Auto) 0.6 10^3/uL (0.0-0.8) 06/03/24 05:54 Baso # (Auto) 0.1 10^3/uL (0.0-0.1) 06/03/24 05:54 Absolute Gran (auto) Cancelled 06/02/24 14:49 Nucleated RBC % (auto) 0 % 06/03/24 05:54 Nucleated RBCs # 0.0 /100WBC 06/03/24 05:54 Peripher Smr Path Cons Sent for review 05/31/24 15:12 Hemoglobinopathy MCV 80.7 fL (80.0-100.0) 06/01/24 05:48 Hemoglobinopathy MCH 24.9 pg (27.0-33.0) L 06/01/24 05:48 Hemoglobinopathy RDW 18.9 % (11.0-15.0) H 06/01/24 05:48 D-Dimer 0.28 ug/mLFEU (0-0.59) 05/30/24 17:46 Sodium 139 mmol/L (136-145) 06/03/24 05:54 Potassium 4.0 mmol/L (3.5-5.1) 06/03/24 05:54 Chloride 101 mmol/L (98-107) 06/03/24 05:54 Carbon Dioxide 27 mmol/L (22-29) 06/03/24 05:54 Anion Gap 15.0 (5-19) 06/03/24 05:54 BUN 8 mg/dL (8-23) 06/03/24 05:54 Creatinine 0.8 mg/dL (0.5-0.9) 06/03/24 05:54 GFR Calculation 72.4 mL/min (90-130) L 06/03/24 05:54 Glucose 98 mg/dL (65-115) 06/03/24 05:54 Calculated Osmolality 286 mOsm/kg (285-295) 06/03/24 05:54 Lactic Acid 2.1 mmol/L (0.5-2.2) 05/31/24 04:00 Lactic Acid (Sepsis) 1.6 mmol/L (0.5-2.2) 05/31/24 07:14 Calcium 9.5 mg/dL (8.5-10.5) 06/03/24 05:54 Magnesium 2.2 mg/dL (1.7-2.3) 06/03/24 05:54 Iron 14 ug/dL (37-145) L 05/30/24 17:46 TIBC 546 mcg/dl 05/30/24 17:46 % Saturation 2.5 % (20-50) L 05/30/24 17:46 Unsat Iron Binding 532 ug/dL (112-347) H 05/30/24 17:46 Ferritin 9 ng/mL (15-150) L 05/30/24 17:46 Total Bilirubin 0.3 mg/dL (0.15-1.2) 05/30/24 17:46 AST 21 U/L (0-32) 05/30/24 17:46 ALT 16 U/L (0-33) 05/30/24 17:46 Alkaline Phosphatase 79 U/L (35-105) 05/30/24 17:46 NT-Pro-B Natriuret Pep 368 pg/mL (0-125) H 05/30/24 17:46 Total Protein 6.2 g/dL (6.6-8.7) L 05/30/24 17:46 Albumin 3.9 g/dL (3.5-5.2) 05/30/24 17:46 Globulin 2.3 g/dL (1.3-4.6) 05/30/24 17:46 Vitamin B12 832 pg/mL (232-1245) 05/30/24 17:46 Blood Type O Positive 05/30/24 18:27 Rho(D) Type Rh positive 05/30/24 18:27 Antibody Screen Negative 05/30/24 18:27 Crossmatch See Detail 05/30/24 18:27 Vitals Last Vital Signs Temp 98.3 F 06/03/24 08:00 Pulse 89 06/03/24 08:00 Resp 17 06/03/24 08:00 BP 156/97 06/03/24 08:00 Pulse Ox 95 06/03/24 08:00 O2 Del Method Room Air 06/03/24 08:00 O2 Flow Rate 1 06/02/24 15:08 Discharge Plan Discharge Patient Disposition: Home Condition: Stable Prescriptions: New sucralfate 1 gram Tablet 1 g PO AC&BEDTIME Qty: 60 0RF pantoprazole 40 mg Tablet,Delayed Release (Dr/Ec) 40 mg PO BID Qty: 60 0RF folic acid 1 mg Tablet 1 mg PO DAILY Qty: 30 0RF ferrous sulfate 325 mg (65 mg iron) Tablet,Delayed Release (Dr/Ec) 325 mg PO BIDWM Qty: 60 0RF thiamine mononitrate (vit B1) [Vitamin B-1 (mononitrate)] 100 mg Tablet 100 mg PO DAILY Qty: 30 0RF multivitamin with folic acid [Thera] 400 mcg Tablet 1 tab PO DAILY Qty: 30 0RF nitrofurantoin macrocrystal 100 mg capsule 100 mg PO BID 7 Days Qty: 14 0RF Rx Instructions: must administer with a meal/food Continued albuterol sulfate 90 mcg/actuation HFA aerosol inhaler 2 puff inhalation Q6H Qty: 8.5 0RF Rx Instructions: 2 puffs inhaled every 6 hours as needed clonazepam 0.5 mg tablet 0.5 mg PO BID PRN (Reason: anxiety) Qty: 45 2RF Rx Instructions: Must last 30 days amitriptyline 100 mg tablet 100 mg PO DAILY Qty: 90 1RF venlafaxine 150 mg capsule,extended release 24hr 150 mg PO DAILY Qty: 30 0RF omeprazole 40 mg capsule,delayed release(DR/EC) 40 mg PO .qnightly PRN (Reason: Acid Reflux) Held aripiprazole 5 mg tablet 2.5 mg PO .q am Hold Instructions: Hold till seen by hematology Discharge Orders: Discharge Order (Routine); Ordered 06/03/24 Ordered By: Shayy Syed Other Ambulatory Orders: Complete Blood Count w/Auto (Q7D) Timeframe: 20240605 Location: Determined by Patient Ordered By: Shayy Syed Complete Blood Count w/Auto (Q7D) Timeframe: 20240612 Location: Determined by Patient Ordered By: Shayy Syed Referrals: Surjit Butcher MD [Hospitalist] - 06/03/24 3:30 pm (We have notified your physician's clinic of the need for a follow-up appointment to be scheduled. If you have not heard from them within the next 2 business days, please call them directly. ) Pankaj Jose MD [Primary Care Provider] - 07/09/24 9:30 am () Laci Johnson MD [Physician] - 4-7 days (colonoscopy) Discharge Diet: Cardiac Discharge Activity: Resume usual activity Patient Instructions: Sucralfate (By mouth), Anemia (GEN), GI Post Discharge Instructions w/ Anesthesia, Opioid Safety Discharge Attestations Time Spent in Discharge Care*: greater than 30 min Quality Metrics Clinical Quality Measures [ No reported AMI, CVA or VTE this stay] Coding Level of Care Code 48812 Total time (in minutes) for Discharge: 35 Diagnoses Anxiety and depression F41.9; F32.A Alcohol use disorder, mild, abuse F10.10 Osteopenia M85.80 Gastroesophageal reflux disease without esophagitis K21.9 Esophagitis presence: without esophagitis History of compression fracture of spine Z87.81 Psychophysiological insomnia F51.04 Insomnia type: psychophysiologic Severe anemia D64.9 Microcytic anemia D50.9 GAVINO (acute kidney injury) N17.9
[2024-06-09 15:19] LABS: HPLC Confirms; Hematocrit 38.2 % (35.0-45.0); Hemoglobin 11.3 g/dL (11.7-15.5); Hemoglobinopathy Ferritin 17 ng/mL (16-288); Hemoglobinopathy MCHC 29.6 g/dL (32.0-36.0); Hemoglobinopathy MCV 84.5 fL (80.0-100.0); Red Blood Cell Count 4.52 Mill/uL (3.80-5.10)
== END 2024-06-03 10:55 | disposition home or self-care (01) | DRG 811 ==
LOC: ER 20:21 → MEDSURG 20:21
PROVIDERS: Student in an Organized Health Care Education/Training Program; Admitting Provider Internal Medicine; Emergency Provider Emergency Medicine; PCP Family Medicine; Visit Provider Internal Medicine
PROC: 0DJ08ZZ Inspection of Upper Intestinal Tract, Via Natural or Artificial Opening Endoscopic (ICD-10-PCS; principal; 2024-05-31 09:15)
DX: D50.9 Iron deficiency anemia, unspecified (principal); K29.51 Unspecified chronic gastritis with bleeding; N17.9 Acute kidney failure, unspecified; N39.0 Urinary tract infection, site not specified; F41.9 Anxiety disorder, unspecified; F32.A Depression, unspecified; F10.10 Alcohol abuse, uncomplicated; M85.80 Other specified disorders of bone density and structure, unspecified site; K21.9 Gastro-esophageal reflux disease without esophagitis; F51.04 Psychophysiologic insomnia; B96.89 Other specified bacterial agents as the cause of diseases classified elsewhere; I45.10 Unspecified right bundle-branch block; K44.9 Diaphragmatic hernia without obstruction or gangrene; G89.29 Other chronic pain; M54.9 Dorsalgia, unspecified; Z79.1 Long term (current) use of non-steroidal anti-inflammatories (NSAID); R00.0 Tachycardia, unspecified
CPT/HCPCS: 36415; 36430; 43235; 71045; 71260; 74177; 80048; 80053; 80503; 82607; 82728; 83020; 83540; 83550; 83605; 83735; 83880; 85014; 85018; 85025; 85041; 85045; 85378; 86850; 86900; 86920; 87040; 87077; 87086; 87186; 93005; 93306; 94640; 96372; 96374; 96375; 99285; G0378; J1200; J1756; J1940; J2470; J2704; J2919; J3411; J7040; J9999; P9016

== ENCOUNTER 2024-06-18 14:00 | Oncology outpatient (recurring) (ONCR) | payer MEDICAID, SELFPAY ==
[2024-06-11] MEDS: iron sucrose 300 MG in sodium chloride 0.9% (100 ml) 100 ML 200 MG IV (12:58)
[2024-06-11 13:43] VITALS: BP 113/71; PULSE 89; RESP 16; TEMP 36.4; O2SAT 93
--- NOTE | 2024-06-11 16:35 | PC.NURSE ---
Pt arrived to infusion services for an iron infusion. Pt was noted to have extensive discoloration, swelling and tenderness to both arms, the right being worse than the left. The discoloration started partway up her forearm through her AC space and up into her bicep area. Hardened areas that appeared to be 'cord like veins were noted on the right side. Pt relayed that all of the discoloration, swelling and tenderness was related to a recent hospital stay at [facility] where she received blood transfusions as well as several iron transfusions. The patient states that the iron transfusion was very painful. Per the patient, she states she told her nurses taking care of her during her recent stay that the iron infusion was hurting her and was told that this was normal for iron transfusions. Pt states she sough medical attention for the pain, swelling and tenderness in her arms after being released from [facility] at the walk in clinic. Pt presented photographic documentation of her arms. This nurse contacted Salima Mallory RN and Margarita Bryan to evaluate the patients arms. Kirsten Oakes was contacted by Margarita Bryan and presented to the infusion center to speak with the patient and take notes. Pt wished to proceed with the ordered iron infusion today, a 24 guage IV was started by this nurse, iron transfused without incident.
[2024-06-18] MEDS: iron sucrose 300 MG in sodium chloride 0.9% (100 ml) 100 ML 200 MG IV (14:28)
== END 2024-07-08 23:59 | disposition home or self-care (01) ==
PROVIDERS: PCP Family Medicine; Visit Provider Internal Medicine Medical Oncology
DX: Z53.9 Procedure and treatment not carried out, unspecified reason; D50.9 Iron deficiency anemia, unspecified; Z79.899 Other long term (current) drug therapy
CPT/HCPCS: 96365; J1756

== ENCOUNTER 2024-06-30 11:29 | Day surgery (SDC) | payer MEDICAID, SELFPAY ==
--- NOTE | 2024-06-30 11:46 | W.PM.OPSUD ---
Surgery/Procedure H&P Update DATE OF PROCEDURE: June 30, 2024 DATE H&P PERFORMED: 06/11/24 H&P UPDATE INFORMATION: I have reviewed H&P completed within last 30 days, I have examined patient prior to procedure and No changes to prior documentation PLANNED PROCEDURE: Operation Date: 06/30/24 12:30 Proposed Procedures p Colonoscopy 99967 G0105 D50.0(Not Applicable) - Laci Johnson MD
[2024-06-30 11:50] VITALS: BP 99/66; PULSE 84; RESP 16; TEMP 36.6; O2SAT 98; BMI 27.4
[2024-06-30] MEDS: sodium chloride 0.9% 500 ML 15 ML IV (12:07)
--- NOTE | 2024-06-30 12:17 | ANES.PREANE2 ---
Pre-Anesthetic Assessment Height/Weight: Height 1.65 m Weight 74.843 kg Temp Pulse Resp BP Pulse Ox O2 Del Method 97.9 F 84 16 99/66 98 Room Air 06/30/24 11:50 06/30/24 11:50 06/30/24 11:50 06/30/24 11:50 06/30/24 11:50 06/30/24 11:50 Preop Diagnosis: Screen Operation Date: 06/30/24 12:30 Proposed Procedures p Colonoscopy 16905 G0105 D50.0(Not Applicable) - Laci Johnson MD Familial anesthetic complications: none Was Beta Dusitn taken within 24 hours: N/A Was Clonidine taken within 24 hours: N/A Last intake: Intake Last Liquid Date 06/29/24 Last Liquid Time 23:55 Last Solid Date 06/28/24 Last Solid Time 22:00 Social No alcohol and No tobacco Exam alert, oriented x 3, clear to auscultation bilaterally and regular rate & rhythm Airway Cervical ROM: within normal limits Mallampati: Class II Dentition: full History/ROS No significant history except as noted Pulmonary None reported CV/HEM Anemia None reported Hepatic None reported GI Gastroesophageal Reflux Disease Metabolic None reported Musc/skel None reported Neuropsych Anxiety Took clonazepam this am. Anesthetic Plan ASA status: 2 Anesthesia: MAC Risk of > 500 ml blood loss (7ml/kg in children): No Medications/Allergies Home Medications ?Medication ?Instructions ?Recorded ?Confirmed ?Last Taken ?Type venlafaxine 150 mg 150 mg PO DAILY #30 caps 05/08/24 06/24/24 06/29/24 Rx capsule,extended release 24 hr ferrous sulfate 325 mg (65 mg 325 mg PO BIDWM #60 tabs 06/02/24 06/24/24 06/29/24 Rx iron) tablet,delayed release folic acid 1 mg tablet 1 mg PO DAILY #30 tabs 06/02/24 06/24/24 06/29/24 Rx multivitamin with folic acid 400 1 tab PO DAILY #30 tabs 06/02/24 06/24/24 06/28/24 Rx mcg tablet (Thera) pantoprazole 40 mg tablet,delayed 40 mg PO BID #60 tabs 06/02/24 06/24/24 06/29/24 Rx release sucralfate 1 gram tablet 1 g PO AC&BEDTIME #60 tabs 06/02/24 06/30/24 06/28/24 Rx thiamine mononitrate (vit B1) 100 100 mg PO DAILY #30 tabs 06/02/24 06/24/24 06/29/24 Rx mg tablet (Vitamin B-1 (mononitrate)) clonazepam 0.5 mg tablet 0.5 mg PO BID PRN anxiety #45 tabs 06/04/24 06/24/24 06/30/24 Rx amitriptyline 100 mg tablet 100 mg PO BEDTIME 06/24/24 06/24/24 06/28/24 History Allergies Allergy/AdvReac Type Severity Reaction Status Date / Time No Known Allergies Allergy Verified 06/12/24 11:02 Current Medications Generic Name Dose Route Start Last Admin Trade Name Freq PRN Reason Stop Dose Admin Sodium Chloride 500 mls @ 15 mls/hr 06/30/24 11:45 06/30/24 12:07 Sodium Chloride 0.9% IV 15 mls/hr .Q24H CASSANDRA Administration PFSH Anesthesia Medical History Alcohol use disorder, mild, abuse Screening mammogram for breast cancer Osteopenia Moderate major depression GERD (gastroesophageal reflux disease) History of compression fracture of spine L3 Chronic cystitis Surgical History History of ankle surgery Hx of cervical biopsy History of cataract surgery Family History Mother , AT AGE 48 Non Hodgkin's lymphoma Father No problems noted. Social History Smoking and tobacco/nicotine status: never used tobacco/nicotine Alcohol intake: current Alcohol intake frequency: few times a week Substance/Drug Use: never Marital status: Current occupational status: unemployed Data Anesthesia Cardiac Studies: Echocardiogram 05/31/24
[2024-06-30 12:39] VITALS: BP 95/61; PULSE 84; RESP 15; TEMP 36.2; O2SAT 94
--- NOTE | 2024-06-30 13:01 | ANE.PACU2 ---
Inpatient post-anesthesia follow up: Airway intact: Yes Vital signs: Temperature 97.2 F Pulse Rate 84 Respiratory Rate 15 Blood Pressure 95/61 Pulse Oximetry 94 Oxygen Delivery Me thod Room Air Oxygen Flow Rate Fraction of Inspir ed Oxygen Hydration adequate: Yes Nausea and vomiting: No Pain level: 1 Mental status: Baseline
== END 2024-06-30 13:01 | disposition home or self-care (01) ==
PROVIDERS: PCP Family Medicine; Visit Provider Student in an Organized Health Care Education/Training Program
PROC: 0DJD8ZZ Inspection of Lower Intestinal Tract, Via Natural or Artificial Opening Endoscopic (ICD-10-PCS; CPT 45378; principal; 2024-06-30 12:30)
DX: D50.0 Iron deficiency anemia secondary to blood loss (chronic) (principal); K21.9 Gastro-esophageal reflux disease without esophagitis; F41.9 Anxiety disorder, unspecified; Z79.899 Other long term (current) drug therapy
CPT/HCPCS: 45378; J2704; J3490; J7040

== ENCOUNTER 2024-07-22 13:30 | Oncology outpatient (recurring) (ONCR) | payer MEDICAID, SELFPAY ==
[2024-07-22 14:04] LABS: Basophils # 0.1 10^3/uL (0.0-0.1); Basophils % 1.3 %; Eosinophils # 0.4 10^3/uL (0.0-0.8); Eosinophils % 6.6 %; Hematocrit 45.6 % (36-47); Lymphocytes # 1.5 10^3/uL (0.8-4.8); Lymphocytes % 23.9 %; Mean Corpuscular HGB Conc 31.8 g/dL (30-55); Mean Corpuscular Hemoglobin 26.9 pg (27-33); Mean Corpuscular Volume 84.6 fl (85-98); Mean Platelet Volume 10.4 fL (7.4-10.4); Monocytes # 0.7 10^3/uL (0.2-0.9); Monocytes % 10.7 %; Neutrophils # 3.62 10^3/uL (1.8-7.7); Neutrophils % 57.2 %; Nucleated Red Blood Cells % 0 %; Platelet Count 332 10^3/cmm (157-399); Red Blood Count 5.39 10^6/uL (3.85-5.65); Red Cell Distribution Width 22.1 % (12.1-15.1); White Blood Count 6.33 10^3/uL (3.29-11.43)
[2024-07-22 14:06] LABS: Reticulocyte % 1.6 % (0.5-2.0)
[2024-07-22 14:26] LABS: Alanine Aminotransferase 30 U/L (0-33); Albumin Level 4.4 g/dL (3.5-5.2); Alkaline Phosphatase 93 U/L (35-105); Aspartate Amino Transferase 30 U/L (0-32); Blood Urea Nitrogen 11 mg/dL (8-23); Calcium 10.1 mg/dL (8.5-10.5); Carbon Dioxide 23 mmol/L (22-29); Chloride 100 mmol/L (98-107); Creatinine Clr Calc Pharmacy 80.5798; Glomerular Filtration Rate 84.2 mL/min (90-130); Glucose 93 mg/dL (65-115); Osmolality Calculated 287 mOsm/kg (285-295); Sodium 139 mmol/L (136-145); Total Bilirubin 0.3 mg/dL (0.15-1.2); Total Protein 7.4 g/dL (6.6-8.7)
[2024-07-22 14:31] LABS: Anion Gap 20.1 (5-19); Potassium 4.1 mmol/L (3.5-5.1)
== END 2024-08-08 23:59 | disposition home or self-care (01) ==
LOC: ONCMED 13:30
PROVIDERS: Internal Medicine; PCP Family Medicine; Visit Provider Internal Medicine Medical Oncology
DX: D64.9 Anemia, unspecified (principal)
CPT/HCPCS: 36415; 80053; 85025; 85045; 86880

== ENCOUNTER 2024-10-21 15:20 | Oncology outpatient (recurring) (ONCR) | payer MEDICAID, SELFPAY ==
[2024-10-21 16:01] LABS: Hematocrit 40.8 % (36-47); Hemoglobin 13.40 g/dL (11.27-16.99); Mean Corpuscular HGB Conc 32.8 g/dL (30-55); Mean Corpuscular Hemoglobin 31.9 pg (27-33); Mean Corpuscular Volume 97.1 fl (85-98); Nucleated Red Blood Cells % 0 %; Platelet Count 290 10^3/cmm (157-399); Red Blood Count 4.20 10^6/uL (3.85-5.65); White Blood Count 7.48 10^3/uL (3.29-11.43)
[2024-10-21 16:40] LABS: Alanine Aminotransferase 18 U/L (0-33); Albumin Level 4.6 g/dL (3.5-5.2); Alkaline Phosphatase 88 U/L (35-105); Anion Gap 16.3 (5-19); Aspartate Amino Transferase 19 U/L (0-32); Blood Urea Nitrogen 26 mg/dL (8-23); Calcium 9.8 mg/dL (8.5-10.5); Carbon Dioxide 26 mmol/L (22-29); Chloride 99 mmol/L (98-107); Creatinine Clr Calc Pharmacy 72.9491; Ferritin 99 ng/mL (15-150); Globulin 2.5 g/dL (1.3-4.6); Glucose 83 mg/dL (65-115); Iron 73 ug/dL (37-145); Osmolality Calculated 288 mOsm/kg (285-295); Potassium 4.3 mmol/L (3.5-5.1); Sodium 137 mmol/L (136-145); Total Iron Binding Capacity 452 mcg/dl; Total Protein 7.1 g/dL (6.6-8.7); Unsaturated Iron Binding 379 ug/dL (112-347)
[2024-10-21 16:55] LABS: Vitamin B12 631 pg/mL (232-1245)
== END 2024-11-08 23:59 | disposition home or self-care (01) ==
PROVIDERS: Internal Medicine Medical Oncology; PCP Family Medicine; Visit Provider Internal Medicine
DX: D50.0 Iron deficiency anemia secondary to blood loss (chronic) (principal)
CPT/HCPCS: 36415; 80053; 82607; 82728; 82746; 83540; 83550; 85025

== ENCOUNTER → 2024-12-11 17:24 | Outpatient (BNVA) | payer MEDICAID, SELFPAY | PROVIDERS: PCP Family Medicine; Visit Provider Emergency Medicine | DX: R39.9 Unspecified symptoms and signs involving the genitourinary system (principal); N12 Tubulo-interstitial nephritis, not specified as acute or chronic | CPT/HCPCS: 81000; 87077; 87086; 87184 ==

== ENCOUNTER 2025-01-21 08:30 | Oncology outpatient (recurring) (ONCR) | payer MEDICAID, SELFPAY ==
[2025-01-20 14:49] LABS: Hematocrit 27.2 % (36-47); Hemoglobin 8.10 g/dL (11.27-16.99); Mean Corpuscular HGB Conc 29.8 g/dL (30-55); Mean Corpuscular Hemoglobin 25.4 pg (27-33); Mean Corpuscular Volume 85.3 fl (85-98); Nucleated Red Blood Cells % 0 %; Platelet Count 443 10^3/cmm (157-399); Red Blood Count 3.19 10^6/uL (3.85-5.65); White Blood Count 7.29 10^3/uL (3.29-11.43)
[2025-01-20 15:11] LABS: Alanine Aminotransferase 16 U/L (0-33); Albumin Level 4.1 g/dL (3.5-5.2); Alkaline Phosphatase 82 U/L (35-105); Anion Gap 16.1 (5-19); Aspartate Amino Transferase 17 U/L (0-32); Blood Urea Nitrogen 17 mg/dL (8-23); Calcium 9.4 mg/dL (8.5-10.5); Carbon Dioxide 26 mmol/L (22-29); Chloride 101 mmol/L (98-107); Ferritin 9 ng/mL (15-150); Globulin 2.6 g/dL (1.3-4.6); Glucose 124 mg/dL (65-115); Iron 34 ug/dL (37-145); Osmolality Calculated 291 mOsm/kg (285-295); Potassium 4.1 mmol/L (3.5-5.1); Sodium 139 mmol/L (136-145); Total Iron Binding Capacity 520 mcg/dl; Total Protein 6.7 g/dL (6.6-8.7); Unsaturated Iron Binding 486 ug/dL (112-347)
[2025-01-21] VITALS (10 sets, daily range): BP systolic 98–128; BP diastolic 61–70; PULSE 70–103; RESP 18; TEMP 36.2–36.4; O2SAT 91–98
== END 2025-02-07 23:59 | disposition home or self-care (01) ==
PROVIDERS: Nurse Practitioner; PCP Family Medicine; Visit Provider Internal Medicine
DX: Z53.9 Procedure and treatment not carried out, unspecified reason; D64.9 Anemia, unspecified
CPT/HCPCS: 36415; 36430; 80053; 82728; 83540; 83550; 85025; 86850; 86900; 86920; J9999; P9016

== ENCOUNTER → 2025-02-19 15:12 | Outpatient (BNVA) | payer MEDICAID, SELFPAY | PROVIDERS: PCP Family Medicine; Visit Provider Family Medicine | DX: D50.0 Iron deficiency anemia secondary to blood loss (chronic) (principal) | CPT/HCPCS: 80053; 82728; 83550; 85025; 86850; 86900 ==

== ENCOUNTER 2025-02-25 13:17 | Oncology outpatient (recurring) (ONCR) | payer MEDICAID, SELFPAY ==
[2025-02-25 13:57] LABS: Hematocrit 33.3 % (36-47); Hemoglobin 9.80 g/dL (11.27-16.99); Mean Corpuscular HGB Conc 29.4 g/dL (30-55); Mean Corpuscular Hemoglobin 24.7 pg (27-33); Mean Corpuscular Volume 84.1 fl (85-98); Nucleated Red Blood Cells % 0 %; Platelet Count 526 10^3/cmm (157-399); Red Blood Count 3.96 10^6/uL (3.85-5.65); White Blood Count 5.79 10^3/uL (3.29-11.43)
[2025-02-25 14:13] LABS: Alanine Aminotransferase 17 U/L (0-33); Albumin Level 4.0 g/dL (3.5-5.2); Alkaline Phosphatase 86 U/L (35-105); Anion Gap 15.4 (5-19); Aspartate Amino Transferase 19 U/L (0-32); Blood Urea Nitrogen 13 mg/dL (8-23); Calcium 9.5 mg/dL (8.5-10.5); Carbon Dioxide 27 mmol/L (22-29); Chloride 101 mmol/L (98-107); Ferritin 18 ng/mL (15-150); Globulin 2.4 g/dL (1.3-4.6); Glucose 87 mg/dL (65-115); Iron 478 ug/dL (37-145); Osmolality Calculated 287 mOsm/kg (285-295); Potassium 4.4 mmol/L (3.5-5.1); Sodium 139 mmol/L (136-145); Total Protein 6.4 g/dL (6.6-8.7)
[2025-02-25 14:36] LABS: Unsaturated Iron Binding < 17 ug/dL (112-347)
== END 2025-03-10 23:59 | disposition home or self-care (01) ==
PROVIDERS: PCP Family Medicine; Visit Provider Nurse Practitioner
DX: D64.9 Anemia, unspecified (principal)
CPT/HCPCS: 36415; 80053; 82728; 83540; 83550; 85025